=== PATIENT | female | born 1960 | race African-American/Black ===

== ENCOUNTER 2022-12-15 11:59 | Inpatient (IN) | payer OTHER ==
[2022-12-15] MEDS ORDERED: HEPARIN NA (PORCINE) 5,000 UNITS/ML 1ML VIAL IVPUSH PRN ×2 (18:10)
[2022-12-15] MEDS: HEPARIN - 25,000 UNIT in SODIUM CHLORIDE 495 ML IV SCH (19:51)
[2022-12-15 21:00] LABS: BASO % 1.3 % (0-2.0); EOS % 0.9 % (0-4.5); HEMATOCRIT 34.5 % (32.4-45.2); HEMOGLOBIN 11.3 GM/dL (10.7-15.3); LYMPH % 25.1 % (8-40); MCH 29.5 pg (25.7-33.7); MCHC 32.8 g/dl (32.0-36.0); MEAN CELL VOLUME 89.8 fl (80-96); MEAN PLT VOLUME 9.8 fl (7.5-11.1); MONO % 11.7 % (3.8-10.2); PLATELET COUNT 369 10^3/uL (134-434); RBC 3.85 M/mm3 (3.60-5.2); RDW 14.6 % (11.6-15.6)
[2022-12-15 21:07] LABS: INR 1.11 (0.83-1.09); PROTHROMBIN TIME (PATIENT) 12.9 SEC (9.7-13.0)
[2022-12-15 21:09] LABS: ACTIVATED PTT 49.3 SECONDS (25.2-36.5)
[2022-12-15 21:26] LABS: CALCIUM 9.3 mg/dL (8.5-10.1)
[2022-12-15 21:27] LABS: ALBUMIN 2.7 g/dl (3.4-5.0); BLOOD UREA NITROGEN 16.6 mg/dL (7-18)
[2022-12-15 21:30] LABS: CREATININE 0.8 mg/dL (0.55-1.3)
[2022-12-15 21:31] LABS: BILIRUBIN,TOTAL 0.4 mg/dL (0.2-1)
[2022-12-15] MEDS ORDERED: INSULIN (NOVOLOG) ASPART 100 UNITS/ML 10ML VIAL ONE (22:21)
[2022-12-15] MEDS: INSULIN SLIDING SCALE (NOVOLOG) 1 VIAL SQ SCH (22:26)
[2022-12-15 23:37] LABS: ANISOCYTOSIS 0; HELMET CELLS 0; HOWELL-JOLLY BODIES 0; MACROCYTOSIS 0; OVALOCYTE 0; PLATELET ESTIMATE NORMAL; ROULEAU 0; SICKELED CELLS 0; TARGET CELLS 0; TEAR DROP CELLS 0; TOXIC GRANULATION 0
[2022-12-16] MEDS ORDERED: HYDROCORTISONE SOD SUCCINATE 100 MG/2 ML VIAL IVPUSH ONE (06:00)
[2022-12-16] MEDS: INSULIN SLIDING SCALE (NOVOLOG) 1 VIAL SQ SCH ×4 (06:09→22:55)
[2022-12-16] MEDS ORDERED: LISINOPRIL 5 MG TABLET PO SCH (10:00)
[2022-12-16] MEDS ORDERED: ATORVASTATIN CA 20 MG TABLET (FP) PO SCH (10:00)
[2022-12-16] MEDS: HEPARIN - 25,000 UNIT in SODIUM CHLORIDE 495 ML IV SCH ×2 (12:45→19:15)
[2022-12-16] MEDS ORDERED: DEXTROSE 5%-NORMAL SALINE 1,000 ML IV SCH (14:15)
[2022-12-16] MEDS ORDERED: HEPARIN NA (PORCINE) 5,000 UNITS/ML 1ML VIAL ONE ×3 (15:27→18:57)
[2022-12-16] MEDS ORDERED: LIDOCAINE HCL 1%, 10 MG/ML (10ML VIAL) MDV ONE (15:27)
[2022-12-16] MEDS ORDERED: PROPOFOL 40 ML ONE ×2 (15:54→18:01)
[2022-12-16] MEDS ORDERED: MIDAZOLAM HCL 2 MG/2 ML SINGLE DOSE VIAL ONE (16:05)
[2022-12-16] MEDS ORDERED: PROPOFOL 20 ML ONE ×2 (16:06→18:26)
[2022-12-16] MEDS ORDERED: SODIUM CHLORIDE 1,000 ML IV SCH ×2 (16:15→19:31)
[2022-12-16] MEDS ORDERED: ceFAZolin SODIUM 1 GM VIAL IVPB ONE (16:20)
[2022-12-16] MEDS ORDERED: LIDOCAINE HCL 1%, 10 MG/ML (20ML VIAL) NR ONE (16:28)
[2022-12-16] MEDS ORDERED: ONDANSETRON 4 MG/2 ML VIAL ONE (17:42)
[2022-12-16] MEDS ORDERED: HYDROCORTISONE SOD SUCCINATE 100 MG/2 ML VIAL IVPUSH SCH (18:15)
[2022-12-16] MEDS ORDERED: ONDANSETRON 4 MG/2 ML VIAL IVPUSH PRN ×2 (18:48→19:31)
[2022-12-16] MEDS: HEPARIN NA (PORCINE) 5,000 UNITS/ML 1ML VIAL IVPUSH PRN (19:00)
[2022-12-16] MEDS ORDERED: HEPARIN NA (PORCINE) 5,000 UNITS/ML 1ML VIAL IVPUSH PRN ×2 (19:00→19:01)
[2022-12-16] MEDS ORDERED: LACTATED RINGERS SOLUTION 1,000 ML IV SCH ×2 (19:00→19:31)
[2022-12-16] MEDS ORDERED: morphine SULFATE 4 MG/ML VIAL IVPUSH PRN (19:04)
[2022-12-16] MEDS ORDERED: ACETAMINOPHEN 1000 MG/100 ML BAG IVPB PRN (21:34)
[2022-12-16] MEDS ORDERED: INSULIN (LEVEMIR) 100 UNITS/ML UNITS SQ SCH (22:00)
[2022-12-16] MEDS ORDERED: ATORVASTATIN CA 80 MG TABLET (FP) PO SCH (22:00)
[2022-12-16] MEDS ORDERED: BUDESONIDE/FORMETEROL FUMARATE 80/4.5 mcg INHALER IH SCH (22:00)
[2022-12-16] MEDS: MUPIROCIN 2% TOPICAL OINTMENT FOR DECOLONIZATION NS SCH (22:54)
[2022-12-16] MEDS: CHLORHEXIDINE GLUCONATE 4% CLEANSER FOR DECOLONIZATION TP SCH (22:54)
[2022-12-16] MEDS: INSULIN (LEVEMIR) 100 UNITS/ML UNITS SQ SCH (22:54)
[2022-12-16] MEDS: ATORVASTATIN CA 80 MG TABLET (FP) PO SCH (22:54)
[2022-12-16] MEDS: BUDESONIDE/FORMETEROL FUMARATE 80/4.5 mcg INHALER IH SCH (22:55)
[2022-12-17] MEDS: HYDROCORTISONE SOD SUCCINATE 100 MG/2 ML VIAL IVPUSH SCH ×2 (01:30→09:26)
[2022-12-17] MEDS: GABAPENTIN 100 MG CAPSULE PO SCH ×4 (02:30→21:08)
[2022-12-17] MEDS: HYDROmorphone *PCA* 10MG/50ML DISP.SYRIN PCA SCH (03:15)
[2022-12-17] MEDS ORDERED: INSULIN (NOVOLOG) ASPART 100 UNITS/ML 10ML VIAL ONE ×3 (05:49→17:24)
[2022-12-17] MEDS: INSULIN SLIDING SCALE (NOVOLOG) 1 VIAL SQ SCH ×4 (06:13→21:24)
[2022-12-17 07:56] LABS: HEMATOCRIT 34.3 % (32.4-45.2); HEMOGLOBIN 10.7 GM/dL (10.7-15.3); MCH 29.1 pg (25.7-33.7); MCHC 31.3 g/dl (32.0-36.0); MEAN CELL VOLUME 93.1 fl (80-96); MEAN PLT VOLUME 10.7 fl (7.5-11.1); PLATELET COUNT 358 10^3/uL (134-434); RBC 3.68 M/mm3 (3.60-5.2); RDW 14.4 % (11.6-15.6); WHITE BLOOD COUNT 12.9 K/mm3 (4.0-10.0)
[2022-12-17 08:07] LABS: POTASSIUM 3.7 mmol/L (3.5-5.1)
[2022-12-17 08:17] LABS: CREATININE 1.2 mg/dL (0.55-1.3)
[2022-12-17 08:19] LABS: ALBUMIN 2.6 g/dl (3.4-5.0); BILIRUBIN,TOTAL 0.7 mg/dL (0.2-1); BLOOD UREA NITROGEN 10.7 mg/dL (7-18); CALCIUM 8.9 mg/dL (8.5-10.1); MAGNESIUM 1.6 mg/dL (1.8-2.4); TOT PROT 5.6 g/dl (6.4-8.2)
[2022-12-17 08:21] LABS: PHOSPHOROUS 5.5 mg/dL (2.5-4.9)
[2022-12-17] MEDS: LISINOPRIL 5 MG TABLET PO SCH (09:06)
[2022-12-17] MEDS: BUDESONIDE/FORMETEROL FUMARATE 80/4.5 mcg INHALER IH SCH ×2 (09:11→21:10)
[2022-12-17] MEDS: MUPIROCIN 2% TOPICAL OINTMENT FOR DECOLONIZATION NS SCH ×2 (10:16→21:09)
[2022-12-17] MEDS ORDERED: MAGNESIUM SULF 50% (8.12 MEQ/2 ML-1 GM VIAL) IVPB ONE (11:07)
[2022-12-17] MEDS: ACETAMINOPHEN 1000 MG/100 ML BAG IVPB SCH ×2 (11:55→18:07)
[2022-12-17] MEDS ORDERED: ONDANSETRON 4 MG/2 ML VIAL IVPUSH ONE (13:06)
[2022-12-17] MEDS ORDERED: ONDANSETRON 4 MG/2 ML VIAL IVPUSH PRN (13:07)
[2022-12-17 15:06] VITALS: BMI 33.5
[2022-12-17 15:45] LABS: INR 1.42 (0.83-1.09)
[2022-12-17 16:33] LABS: ACTIVATED PTT > 400.0 SECONDS (25.2-36.5)
[2022-12-17 16:56] LABS: INR 1.09 (0.83-1.09); PROTHROMBIN TIME (PATIENT) 12.6 SEC (9.7-13.0)
[2022-12-17] MEDS: HEPARIN NA (PORCINE) 5,000 UNITS/ML 1ML VIAL IVPUSH PRN (17:03)
[2022-12-17] MEDS: HEPARIN - 25,000 UNIT in SODIUM CHLORIDE 495 ML IV SCH (19:15)
[2022-12-17] MEDS: INSULIN (LEVEMIR) 100 UNITS/ML UNITS SQ SCH (21:08)
[2022-12-17] MEDS: CHLORHEXIDINE GLUCONATE 4% CLEANSER FOR DECOLONIZATION TP SCH (21:08)
[2022-12-17] MEDS: ATORVASTATIN CA 80 MG TABLET (FP) PO SCH (21:08)
[2022-12-18] MEDS: HYDROmorphone *PCA* 10MG/50ML DISP.SYRIN PCA SCH (03:20)
[2022-12-18] MEDS: ACETAMINOPHEN 1000 MG/100 ML BAG IVPB SCH ×3 (03:20→17:59)
[2022-12-18] MEDS: GABAPENTIN 100 MG CAPSULE PO SCH ×3 (05:13→21:14)
[2022-12-18] MEDS: INSULIN SLIDING SCALE (NOVOLOG) 1 VIAL SQ SCH ×4 (06:20→21:14)
[2022-12-18 07:13] LABS: HEMATOCRIT 30.4 % (32.4-45.2); HEMOGLOBIN 9.6 GM/dL (10.7-15.3); MCH 29.5 pg (25.7-33.7); MCHC 31.8 g/dl (32.0-36.0); MEAN CELL VOLUME 92.9 fl (80-96); MEAN PLT VOLUME 10.3 fl (7.5-11.1); PLATELET COUNT 336 10^3/uL (134-434); RBC 3.27 M/mm3 (3.60-5.2); RDW 14.5 % (11.6-15.6)
[2022-12-18 07:16] LABS: POTASSIUM 3.4 mmol/L (3.5-5.1)
[2022-12-18 07:19] LABS: CALCIUM 8.3 mg/dL (8.5-10.1)
[2022-12-18 07:21] LABS: ALBUMIN 2.4 g/dl (3.4-5.0); BLOOD UREA NITROGEN 13.4 mg/dL (7-18); MAGNESIUM 2.2 mg/dL (1.8-2.4)
[2022-12-18 07:23] LABS: CREATININE 0.8 mg/dL (0.55-1.3); PHOSPHOROUS 3.4 mg/dL (2.5-4.9)
[2022-12-18 07:24] LABS: BILIRUBIN,TOTAL 0.3 mg/dL (0.2-1); TOT PROT 5.2 g/dl (6.4-8.2)
[2022-12-18] MEDS ORDERED: ALBUTEROL SO4 HFA INHALER IH PRN (07:38)
[2022-12-18] MEDS ORDERED: POTASSIUM CHLORIDE TABS 20 MEQ TABLET.ER (FP) PO ONE (08:11)
[2022-12-18 09:37] LABS: ANISOCYTOSIS 0; MACROCYTOSIS 0
[2022-12-18] MEDS ORDERED: INSULIN (NOVOLOG) ASPART 100 UNITS/ML 10ML VIAL ONE ×2 (10:03→20:55)
[2022-12-18] MEDS: LISINOPRIL 5 MG TABLET PO SCH (10:29)
[2022-12-18] MEDS: MUPIROCIN 2% TOPICAL OINTMENT FOR DECOLONIZATION NS SCH ×2 (10:30→21:15)
[2022-12-18] MEDS: BUDESONIDE/FORMETEROL FUMARATE 80/4.5 mcg INHALER IH SCH ×2 (10:30→22:28)
[2022-12-18] MEDS: INSULIN (LEVEMIR) 100 UNITS/ML UNITS SQ SCH ×2 (10:30→21:14)
[2022-12-18] MEDS ORDERED: ERGOCALCIFEROL (VIT D2) 50,000 UNIT (1.25 MG) CAPSULE PO SCH (11:15)
[2022-12-18] MEDS: CLOPIDOGREL BISULFATE 75 MG TABLET (FP) PO SCH (11:18)
[2022-12-18] MEDS: RIVAROXABAN 20 MG TABLET PO SCH ×2 (11:18→17:57)
[2022-12-18] MEDS: ATORVASTATIN CA 80 MG TABLET (FP) PO SCH (21:14)
[2022-12-18] MEDS: CHLORHEXIDINE GLUCONATE 4% CLEANSER FOR DECOLONIZATION TP SCH (21:15)
[2022-12-19] MEDS: ACETAMINOPHEN 1000 MG/100 ML BAG IVPB SCH ×3 (03:00→20:14)
[2022-12-19] MEDS: GABAPENTIN 100 MG CAPSULE PO SCH ×3 (06:27→21:01)
[2022-12-19] MEDS: INSULIN SLIDING SCALE (NOVOLOG) 1 VIAL SQ SCH ×4 (06:28→21:02)
[2022-12-19] MEDS: INSULIN (NOVOLOG) ASPART 100 UNITS/ML 10ML VIAL SQ SCH ×3 (06:29→16:17)
[2022-12-19] MEDS ORDERED: morphine CARPU-JECT 2 MG/1 ML DISP.SYRIN IVPUSH ONE (06:50)
[2022-12-19 07:00] LABS: HEMATOCRIT 33.8 % (32.4-45.2); HEMOGLOBIN 10.8 GM/dL (10.7-15.3); MCH 29.6 pg (25.7-33.7); MCHC 32.1 g/dl (32.0-36.0); MEAN CELL VOLUME 92.2 fl (80-96); MEAN PLT VOLUME 9.5 fl (7.5-11.1); PLATELET COUNT 362 10^3/uL (134-434); RBC 3.66 M/mm3 (3.60-5.2); RDW 14.6 % (11.6-15.6); WHITE BLOOD COUNT 11.4 K/mm3 (4.0-10.0)
[2022-12-19] MEDS ORDERED: INSULIN (LEVEMIR) 100 UNITS/ML UNITS SQ SCH (07:00)
[2022-12-19] MEDS: CLOPIDOGREL BISULFATE 75 MG TABLET (FP) PO SCH (09:01)
[2022-12-19] MEDS: LISINOPRIL 5 MG TABLET PO SCH (09:01)
[2022-12-19] MEDS: BUDESONIDE/FORMETEROL FUMARATE 80/4.5 mcg INHALER IH SCH ×2 (09:02→21:02)
[2022-12-19] MEDS: MUPIROCIN 2% TOPICAL OINTMENT FOR DECOLONIZATION NS SCH ×2 (09:02→21:00)
[2022-12-19] MEDS ORDERED: ALBUTEROL SO4 HFA INHALER IH PRN (10:53)
[2022-12-19] MEDS ORDERED: ONDANSETRON 4 MG/2 ML VIAL IVPUSH PRN (10:53)
[2022-12-19] MEDS ORDERED: INSULIN (NOVOLOG) ASPART 100 UNITS/ML 10ML VIAL ONE ×3 (11:07→20:51)
[2022-12-19] MEDS: RIVAROXABAN 20 MG TABLET PO SCH (17:08)
[2022-12-19] MEDS ORDERED: LISINOPRIL 5 MG TABLET PO ONE (17:53)
[2022-12-19] MEDS: ATORVASTATIN CA 80 MG TABLET (FP) PO SCH (21:00)
[2022-12-19] MEDS: CHLORHEXIDINE GLUCONATE 4% CLEANSER FOR DECOLONIZATION TP SCH (21:01)
[2022-12-19] MEDS: INSULIN (LEVEMIR) 100 UNITS/ML UNITS SQ SCH (21:01)
[2022-12-20] MEDS ORDERED: HYDROmorphone HCl 2 MG/ML VIAL IVPUSH ONE (00:45)
[2022-12-20] MEDS: ACETAMINOPHEN 1000 MG/100 ML BAG IVPB SCH ×3 (03:30→18:54)
[2022-12-20] MEDS: GABAPENTIN 100 MG CAPSULE PO SCH (06:04)
[2022-12-20] MEDS: INSULIN (LEVEMIR) 100 UNITS/ML UNITS SQ SCH ×2 (06:04→22:25)
[2022-12-20] MEDS: INSULIN SLIDING SCALE (NOVOLOG) 1 VIAL SQ SCH ×5 (06:05→22:26)
[2022-12-20] MEDS: INSULIN (NOVOLOG) ASPART 100 UNITS/ML 10ML VIAL SQ SCH ×3 (06:05→16:17)
[2022-12-20 07:45] LABS: BASO % 0.5 % (0-2.0); EOS % 4.9 % (0-4.5); HEMOGLOBIN 9.9 GM/dL (10.7-15.3); LYMPH % 30.8 % (8-40); MCHC 32.1 g/dl (32.0-36.0); MEAN CELL VOLUME 93.5 fl (80-96); MEAN PLT VOLUME 9.2 fl (7.5-11.1); MONO % 10.7 % (3.8-10.2); NEUT % 53.1 % (42.8-82.8); PLATELET COUNT 338 10^3/uL (134-434); RBC 3.31 M/mm3 (3.60-5.2); RDW 14.5 % (11.6-15.6); WHITE BLOOD COUNT 10.5 K/mm3 (4.0-10.0)
[2022-12-20 08:23] LABS: POTASSIUM 3.8 mmol/L (3.5-5.1)
[2022-12-20] MEDS ORDERED: KETOROLAC TROMETHAMINE 15 MG/ML VIAL IVPUSH ONE (08:30)
[2022-12-20 08:31] LABS: CALCIUM 8.9 mg/dL (8.5-10.1)
[2022-12-20 08:32] LABS: ALBUMIN 2.3 g/dl (3.4-5.0); BLOOD UREA NITROGEN 8.6 mg/dL (7-18)
[2022-12-20 08:33] LABS: BILIRUBIN,TOTAL 0.3 mg/dL (0.2-1)
[2022-12-20 08:34] LABS: TOT PROT 5.7 g/dl (6.4-8.2)
[2022-12-20] MEDS ORDERED: DOCUSATE SODIUM 100 MG CAPSULE (FP) PO PRN (08:56)
[2022-12-20] MEDS: LISINOPRIL 10 MG TABLET PO SCH (09:04)
[2022-12-20] MEDS: CLOPIDOGREL BISULFATE 75 MG TABLET (FP) PO SCH (09:04)
[2022-12-20] MEDS: BUDESONIDE/FORMETEROL FUMARATE 80/4.5 mcg INHALER IH SCH ×2 (09:05→22:03)
[2022-12-20] MEDS: MUPIROCIN 2% TOPICAL OINTMENT FOR DECOLONIZATION NS SCH ×3 (09:05→22:03)
[2022-12-20] MEDS ORDERED: HYDROmorphone HCL 2 MG TABLET PO ONE (09:30)
[2022-12-20] MEDS ORDERED: ACETAMINOPHEN 1000 MG/100 ML BAG IVPB ONE (09:47)
[2022-12-20] MEDS ORDERED: LISINOPRIL 5 MG TABLET PO SCH (10:00)
[2022-12-20] MEDS ORDERED: INSULIN (NOVOLOG) ASPART 100 UNITS/ML 10ML VIAL ONE ×2 (11:04→22:25)
[2022-12-20] MEDS: oxyCODONE HCL 10 MG SUSTAINED ACTING TABLET PO SCH ×2 (11:39→22:03)
[2022-12-20] MEDS: GABAPENTIN 300 MG CAPSULE PO SCH ×2 (13:23→22:03)
[2022-12-20] MEDS: RIVAROXABAN 20 MG TABLET PO SCH (17:04)
[2022-12-20] MEDS: CHLORHEXIDINE GLUCONATE 4% CLEANSER FOR DECOLONIZATION TP SCH (22:03)
[2022-12-20] MEDS: ATORVASTATIN CA 80 MG TABLET (FP) PO SCH (22:03)
[2022-12-21] MEDS ORDERED: HYDROmorphone HCl 2 MG/ML VIAL IVPUSH ONE ×2 (00:14→21:00)
[2022-12-21] MEDS: ACETAMINOPHEN 1000 MG/100 ML BAG IVPB SCH ×3 (02:24→18:14)
[2022-12-21] MEDS: GABAPENTIN 300 MG CAPSULE PO SCH ×3 (05:29→21:29)
[2022-12-21] MEDS: INSULIN (LEVEMIR) 100 UNITS/ML UNITS SQ SCH ×2 (06:18→21:47)
[2022-12-21] MEDS: INSULIN SLIDING SCALE (NOVOLOG) 1 VIAL SQ SCH ×4 (06:20→21:46)
[2022-12-21] MEDS: INSULIN (NOVOLOG) ASPART 100 UNITS/ML 10ML VIAL SQ SCH ×3 (06:20→16:47)
[2022-12-21 06:53] LABS: HEMATOCRIT 32.2 % (32.4-45.2); MCH 29.3 pg (25.7-33.7); MCHC 31.2 g/dl (32.0-36.0); MEAN CELL VOLUME 93.8 fl (80-96); MEAN PLT VOLUME 8.9 fl (7.5-11.1); PLATELET COUNT 372 10^3/uL (134-434); RBC 3.43 M/mm3 (3.60-5.2); RDW 14.7 % (11.6-15.6); WHITE BLOOD COUNT 11.3 K/mm3 (4.0-10.0)
[2022-12-21] MEDS ORDERED: INSULIN (LEVEMIR) 100 UNITS/ML UNITS SQ ONE (07:24)
[2022-12-21] MEDS: MUPIROCIN 2% TOPICAL OINTMENT FOR DECOLONIZATION NS SCH (09:13)
[2022-12-21] MEDS: CLOPIDOGREL BISULFATE 75 MG TABLET (FP) PO SCH (09:14)
[2022-12-21] MEDS: oxyCODONE HCL 10 MG SUSTAINED ACTING TABLET PO SCH ×2 (09:14→21:34)
[2022-12-21] MEDS: LISINOPRIL 10 MG TABLET PO SCH (09:14)
[2022-12-21] MEDS: BUDESONIDE/FORMETEROL FUMARATE 80/4.5 mcg INHALER IH SCH ×2 (09:14→21:33)
[2022-12-21] MEDS: RIVAROXABAN 20 MG TABLET PO SCH (18:14)
[2022-12-21] MEDS: ATORVASTATIN CA 80 MG TABLET (FP) PO SCH (21:29)
[2022-12-21] MEDS: CHLORHEXIDINE GLUCONATE 4% CLEANSER FOR DECOLONIZATION TP SCH (21:29)
[2022-12-22] MEDS: ACETAMINOPHEN 1000 MG/100 ML BAG IVPB SCH ×3 (02:43→18:44)
[2022-12-22] MEDS ORDERED: HYDROmorphone HCl 2 MG/ML VIAL IVPUSH ONE ×2 (03:11→20:59)
[2022-12-22] MEDS: INSULIN (LEVEMIR) 100 UNITS/ML UNITS SQ SCH ×2 (06:46→23:09)
[2022-12-22] MEDS: INSULIN (NOVOLOG) ASPART 100 UNITS/ML 10ML VIAL SQ SCH ×3 (06:46→17:50)
[2022-12-22] MEDS: GABAPENTIN 300 MG CAPSULE PO SCH ×3 (06:47→23:09)
[2022-12-22] MEDS: INSULIN SLIDING SCALE (NOVOLOG) 1 VIAL SQ SCH ×4 (06:47→23:09)
[2022-12-22 07:20] LABS: HEMATOCRIT 29.2 % (32.4-45.2); HEMOGLOBIN 9.3 GM/dL (10.7-15.3); MCH 29.6 pg (25.7-33.7); MCHC 31.8 g/dl (32.0-36.0); MEAN PLT VOLUME 9.3 fl (7.5-11.1); PLATELET COUNT 387 10^3/uL (134-434); RBC 3.14 M/mm3 (3.60-5.2); RDW 14.2 % (11.6-15.6); WHITE BLOOD COUNT 11.1 K/mm3 (4.0-10.0)
[2022-12-22] MEDS: oxyCODONE HCL 10 MG SUSTAINED ACTING TABLET PO SCH ×2 (09:49→23:11)
[2022-12-22] MEDS: BUDESONIDE/FORMETEROL FUMARATE 80/4.5 mcg INHALER IH SCH ×2 (09:50→23:11)
[2022-12-22] MEDS: CLOPIDOGREL BISULFATE 75 MG TABLET (FP) PO SCH (09:50)
[2022-12-22] MEDS: LISINOPRIL 10 MG TABLET PO SCH (09:50)
[2022-12-22] MEDS ORDERED: LACTULOSE 20 GM/30 ML UDC (FOR ORAL USE ONLY) PO ONE (12:00)
[2022-12-22] MEDS: RIVAROXABAN 20 MG TABLET PO SCH (17:50)
[2022-12-22] MEDS: CHLORHEXIDINE GLUCONATE 4% CLEANSER FOR DECOLONIZATION TP SCH (23:08)
[2022-12-22] MEDS: ATORVASTATIN CA 80 MG TABLET (FP) PO SCH (23:09)
[2022-12-22] MEDS: SENNOSIDES 8.8 MG/5 ML SYRUP PO SCH (23:11)
[2022-12-23] MEDS: ACETAMINOPHEN 1000 MG/100 ML BAG IVPB SCH ×3 (03:17→18:05)
[2022-12-23] MEDS: GABAPENTIN 300 MG CAPSULE PO SCH ×2 (06:55→13:48)
[2022-12-23] MEDS: INSULIN (LEVEMIR) 100 UNITS/ML UNITS SQ SCH ×2 (06:55→21:29)
[2022-12-23] MEDS: INSULIN SLIDING SCALE (NOVOLOG) 1 VIAL SQ SCH ×4 (06:57→21:30)
[2022-12-23] MEDS: INSULIN (NOVOLOG) ASPART 100 UNITS/ML 10ML VIAL SQ SCH ×3 (06:57→17:38)
[2022-12-23] MEDS: LISINOPRIL 10 MG TABLET PO SCH (09:04)
[2022-12-23] MEDS: BUDESONIDE/FORMETEROL FUMARATE 80/4.5 mcg INHALER IH SCH ×2 (09:05→21:31)
[2022-12-23] MEDS: oxyCODONE HCL 10 MG SUSTAINED ACTING TABLET PO SCH (09:05)
[2022-12-23] MEDS: CLOPIDOGREL BISULFATE 75 MG TABLET (FP) PO SCH (09:05)
[2022-12-23] MEDS ORDERED: HYDROmorphone HCL 2 MG TABLET PO PRN ×2 (13:42→15:59)
[2022-12-23] MEDS: RIVAROXABAN 20 MG TABLET PO SCH (17:38)
[2022-12-23] MEDS ORDERED: INSULIN (NOVOLOG) ASPART 100 UNITS/ML 10ML VIAL ONE (21:24)
[2022-12-23] MEDS: CHLORHEXIDINE GLUCONATE 4% CLEANSER FOR DECOLONIZATION TP SCH (21:29)
[2022-12-23] MEDS: SENNOSIDES 8.8 MG/5 ML SYRUP PO SCH (21:30)
[2022-12-23] MEDS: GABAPENTIN 400 MG CAPSULE PO SCH (21:30)
[2022-12-23] MEDS: ATORVASTATIN CA 80 MG TABLET (FP) PO SCH (21:30)
[2022-12-24] MEDS: ACETAMINOPHEN 1000 MG/100 ML BAG IVPB SCH ×2 (02:29→11:56)
[2022-12-24] MEDS: GABAPENTIN 400 MG CAPSULE PO SCH ×3 (06:17→22:31)
[2022-12-24] MEDS ORDERED: LIDOCAINE HCL 1%, 10 MG/ML (10ML VIAL) MDV ONE (07:10)
[2022-12-24] MEDS ORDERED: HEPARIN NA (PORCINE) 5,000 UNITS/ML 1ML VIAL ONE (07:10)
[2022-12-24] MEDS: INSULIN SLIDING SCALE (NOVOLOG) 1 VIAL SQ SCH ×4 (07:31→22:32)
[2022-12-24] MEDS: INSULIN (LEVEMIR) 100 UNITS/ML UNITS SQ SCH ×2 (07:31→22:31)
[2022-12-24] MEDS: INSULIN (NOVOLOG) ASPART 100 UNITS/ML 10ML VIAL SQ SCH ×3 (07:31→17:33)
[2022-12-24 07:46] LABS: HEMATOCRIT 30.1 % (32.4-45.2); HEMOGLOBIN 9.7 GM/dL (10.7-15.3); MCH 29.6 pg (25.7-33.7); MCHC 32.2 g/dl (32.0-36.0); MEAN CELL VOLUME 91.9 fl (80-96); MEAN PLT VOLUME 8.5 fl (7.5-11.1); PLATELET COUNT 454 10^3/uL (134-434); RBC 3.28 M/mm3 (3.60-5.2); WHITE BLOOD COUNT 9.9 K/mm3 (4.0-10.0)
[2022-12-24 07:47] LABS: INR 1.62 (0.83-1.09); PROTHROMBIN TIME (PATIENT) 18.7 SEC (9.7-13.0)
[2022-12-24] MEDS ORDERED: PROPOFOL 20 ML ONE ×4 (08:10→09:27)
[2022-12-24] MEDS ORDERED: SUCCINYLCHOLINE CHLORIDE 200 MG/10 ML SYRINGE ONE (08:10)
[2022-12-24] MEDS ORDERED: MIDAZOLAM HCL 2 MG/2 ML SINGLE DOSE VIAL ONE (08:14)
[2022-12-24] MEDS ORDERED: ceFAZolin SODIUM 1 GM VIAL IVPB ONE (08:15)
[2022-12-24] MEDS ORDERED: ONDANSETRON 4 MG/2 ML VIAL ONE (08:15)
[2022-12-24] MEDS ORDERED: LIDOCAINE HCL 1%, 10 MG/ML (20ML VIAL) NR ONE (08:27)
[2022-12-24] MEDS ORDERED: ALTEPLASE (CATHFLO) 2 MG/2 ML VIAL IA ONE ×2 (08:30→10:32)
[2022-12-24] MEDS ORDERED: ALTEPLASE (CATHFLO) 2 MG/2 ML VIAL CVP ONE ×2 (08:39)
[2022-12-24 08:40] LABS: CALCIUM 9.8 mg/dL (8.5-10.1)
[2022-12-24 08:45] LABS: BLOOD UREA NITROGEN 6.5 mg/dL (7-18); MAGNESIUM 2.1 mg/dL (1.8-2.4)
[2022-12-24 08:47] LABS: CREATININE 0.7 mg/dL (0.55-1.3); PHOSPHOROUS 5.4 mg/dL (2.5-4.9)
[2022-12-24] MEDS ORDERED: HEPARIN NA (PORCINE) 5,000 UNITS/ML 1ML VIAL IVPUSH PRN ×2 (10:12)
[2022-12-24] MEDS ORDERED: ONDANSETRON 4 MG/2 ML VIAL IVPUSH PRN ×2 (10:16→10:32)
[2022-12-24] MEDS: HEPARIN INFUSION - 25,000 UNITS/500 ML INFUS.BAG IVPB SCH (10:19)
[2022-12-24] MEDS ORDERED: LACTATED RINGERS SOLUTION 1,000 ML IV SCH (10:30)
[2022-12-24] MEDS ORDERED: ALBUTEROL SO4 HFA INHALER IH PRN (10:32)
[2022-12-24] MEDS ORDERED: HYDROmorphone HCL 2 MG TABLET PO PRN (10:32)
[2022-12-24] MEDS ORDERED: ACETAMINOPHEN INJECTION 100 ML IVPB ONE (11:00)
[2022-12-24] MEDS ORDERED: ACETAMINOPHEN 1000 MG/100 ML BAG IVPB ONE (11:05)
[2022-12-24] MEDS ORDERED: HYDROmorphone HCL 2 MG TABLET PO ONE (11:45)
[2022-12-24] MEDS ORDERED: HYDROmorphone *PCA* 10MG/50ML DISP.SYRIN PCA ONE (11:55)
[2022-12-24] MEDS: HYDROmorphone *PCA* 10MG/50ML DISP.SYRIN PCA SCH (12:01)
[2022-12-24] MEDS: CLOPIDOGREL BISULFATE 75 MG TABLET (FP) PO SCH (13:18)
[2022-12-24] MEDS: LISINOPRIL 10 MG TABLET PO SCH (13:18)
[2022-12-24] MEDS: BUDESONIDE/FORMETEROL FUMARATE 80/4.5 mcg INHALER IH SCH ×2 (13:18→22:32)
[2022-12-24] MEDS ORDERED: SODIUM CHLORIDE 1,000 ML IV STA (15:58)
[2022-12-24] MEDS ORDERED: SODIUM CHLORIDE 1,000 ML IV SCH (16:00)
[2022-12-24] MEDS ORDERED: ACETAMINOPHEN 325 MG TABLET (FP) PO PRN (16:05)
[2022-12-24] MEDS ORDERED: PIPERACILLIN/TAZOB 3.375 GM 3.375 GM in DEXTROSE 5%-WATER - 50 ML IVPB SCH (16:45)
[2022-12-24 17:27] LABS: URINE APPEARANCE CLEAR; URINE BILIRUBIN NEGATIVE (NEGATIVE); URINE COLOR YELLOW; URINE GLUCOSE (UA) NEGATIVE (NEGATIVE); URINE KETONE NEGATIVE (NEGATIVE); URINE LEUK ESTERASE NEGATIVE (NEGATIVE); URINE NITRITE NEGATIVE (NEGATIVE); URINE PROTEIN NEGATIVE (NEGATIVE); URINE UROBILINOGEN 0.2 mg/dL (0.2-1.0)
[2022-12-24] MEDS: PIPERACILLIN/TAZOB 3.375 GM 3.375 GM in DEXTROSE 5%-WATER - 50 ML IVPB SCH ×2 (17:27→21:55)
[2022-12-24] MEDS: VANCOMYCIN/WATER 1250 MG 1,250 MG/250 ML BAG IVPB SCH (17:27)
[2022-12-24 19:04] LABS: BASO % 0.2 % (0-2.0); EOS % 4.4 % (0-4.5); HEMATOCRIT 29.6 % (32.4-45.2); HEMOGLOBIN 9.6 GM/dL (10.7-15.3); MCH 29.6 pg (25.7-33.7); MCHC 32.5 g/dl (32.0-36.0); MEAN CELL VOLUME 91.1 fl (80-96); MEAN PLT VOLUME 7.9 fl (7.5-11.1); MONO % 8.2 % (3.8-10.2); NEUT % 82.2 % (42.8-82.8); PLATELET COUNT 381 10^3/uL (134-434); RBC 3.25 M/mm3 (3.60-5.2); RDW 14.3 % (11.6-15.6); WHITE BLOOD COUNT 10.7 K/mm3 (4.0-10.0)
[2022-12-24 19:20] LABS: POTASSIUM 4.2 mmol/L (3.5-5.1)
[2022-12-24 19:23] LABS: ALBUMIN 2.3 g/dl (3.4-5.0); BLOOD UREA NITROGEN 5.9 mg/dL (7-18); CALCIUM 8.7 mg/dL (8.5-10.1); MAGNESIUM 1.6 mg/dL (1.8-2.4)
[2022-12-24 19:26] LABS: PHOSPHOROUS 6.2 mg/dL (2.5-4.9)
[2022-12-24 19:27] LABS: CREATININE 0.8 mg/dL (0.55-1.3)
[2022-12-24 19:28] LABS: BILIRUBIN,TOTAL 0.2 mg/dL (0.2-1)
[2022-12-24] MEDS ORDERED: VANCOMYCIN/WATER 1250 MG 1,250 MG/250 ML BAG IVPB SCH (22:00)
[2022-12-24] MEDS: CHLORHEXIDINE GLUCONATE 4% CLEANSER FOR DECOLONIZATION TP SCH (22:30)
[2022-12-24] MEDS: ATORVASTATIN CA 80 MG TABLET (FP) PO SCH (22:31)
[2022-12-24] MEDS: SENNOSIDES 8.8 MG/5 ML SYRUP PO SCH (22:32)
[2022-12-25] MEDS: PIPERACILLIN/TAZOB 3.375 GM 3.375 GM in DEXTROSE 5%-WATER - 50 ML IVPB SCH ×3 (02:45→17:52)
[2022-12-25] MEDS: ACETAMINOPHEN 1000 MG/100 ML BAG IVPB SCH ×4 (02:46→19:43)
[2022-12-25] MEDS: VANCOMYCIN/WATER 1250 MG 1,250 MG/250 ML BAG IVPB SCH ×2 (05:03→19:46)
[2022-12-25 08:19] LABS: HEMATOCRIT 28.2 % (32.4-45.2); MCH 29.5 pg (25.7-33.7); MCHC 31.8 g/dl (32.0-36.0); MEAN CELL VOLUME 92.9 fl (80-96); MEAN PLT VOLUME 8.5 fl (7.5-11.1); PLATELET COUNT 376 10^3/uL (134-434); RBC 3.04 M/mm3 (3.60-5.2); RDW 14.3 % (11.6-15.6); WHITE BLOOD COUNT 11.4 K/mm3 (4.0-10.0)
[2022-12-25 08:24] LABS: INR 1.35 (0.83-1.09); PROTHROMBIN TIME (PATIENT) 15.6 SEC (9.7-13.0)
[2022-12-25 08:27] LABS: ACTIVATED PTT 50.4 SECONDS (25.2-36.5)
[2022-12-25 08:51] LABS: POTASSIUM 3.7 mmol/L (3.5-5.1)
[2022-12-25 08:56] LABS: CALCIUM 8.7 mg/dL (8.5-10.1)
[2022-12-25 08:57] LABS: BLOOD UREA NITROGEN 6.4 mg/dL (7-18)
[2022-12-25 08:58] LABS: MAGNESIUM 1.8 mg/dL (1.8-2.4)
[2022-12-25 08:59] LABS: BILIRUBIN,TOTAL 0.3 mg/dL (0.2-1); CREATININE 0.9 mg/dL (0.55-1.3); TOT PROT 5.6 g/dl (6.4-8.2)
[2022-12-25] MEDS: GABAPENTIN 400 MG CAPSULE PO SCH ×3 (09:21→22:41)
[2022-12-25] MEDS: INSULIN (LEVEMIR) 100 UNITS/ML UNITS SQ SCH ×2 (09:22→22:41)
[2022-12-25] MEDS: INSULIN (NOVOLOG) ASPART 100 UNITS/ML 10ML VIAL SQ SCH ×3 (09:22→17:06)
[2022-12-25] MEDS: INSULIN SLIDING SCALE (NOVOLOG) 1 VIAL SQ SCH ×4 (09:23→22:42)
[2022-12-25] MEDS: CLOPIDOGREL BISULFATE 75 MG TABLET (FP) PO SCH (09:27)
[2022-12-25] MEDS: LISINOPRIL 10 MG TABLET PO SCH (09:27)
[2022-12-25] MEDS ORDERED: ERGOCALCIFEROL (VIT D2) 50,000 UNIT (1.25 MG) CAPSULE PO SCH ×2 (10:00)
[2022-12-25] MEDS: BUDESONIDE/FORMETEROL FUMARATE 80/4.5 mcg INHALER IH SCH ×2 (10:44→22:41)
[2022-12-25] MEDS ORDERED: oxyCODONE HCL 5 MG TABLET PO PRN (12:02)
[2022-12-25] MEDS: CYCLOBENZAPRINE HCL 10 MG TABLET (FP) PO PRN (14:32)
[2022-12-25] MEDS: ENOXAPARIN NA (PORCINE) 100 MG/1 ML DISP.SYRIN SQ SCH ×2 (14:33→22:41)
[2022-12-25] MEDS: HYDROmorphone *PCA* 10MG/50ML DISP.SYRIN PCA SCH (19:44)
[2022-12-25] MEDS: HEPARIN INFUSION - 25,000 UNITS/500 ML INFUS.BAG IVPB SCH (19:46)
[2022-12-25] MEDS: SENNOSIDES 8.8 MG/5 ML SYRUP PO SCH (22:37)
[2022-12-25] MEDS: ATORVASTATIN CA 80 MG TABLET (FP) PO SCH (22:41)
[2022-12-25] MEDS: CHLORHEXIDINE GLUCONATE 4% CLEANSER FOR DECOLONIZATION TP SCH (22:41)
[2022-12-26] MEDS: oxyCODONE HCL 5 MG TABLET PO PRN ×2 (00:10→22:35)
[2022-12-26] MEDS: HYDROmorphone *PCA* 10MG/50ML DISP.SYRIN PCA SCH ×2 (00:52→11:55)
[2022-12-26] MEDS: PIPERACILLIN/TAZOB 3.375 GM 3.375 GM in DEXTROSE 5%-WATER - 50 ML IVPB SCH ×3 (01:41→17:33)
[2022-12-26] MEDS: ACETAMINOPHEN 1000 MG/100 ML BAG IVPB SCH ×3 (03:52→18:15)
[2022-12-26] MEDS: INSULIN (LEVEMIR) 100 UNITS/ML UNITS SQ SCH ×2 (06:55→22:24)
[2022-12-26] MEDS: GABAPENTIN 400 MG CAPSULE PO SCH ×3 (06:55→22:25)
[2022-12-26] MEDS: INSULIN SLIDING SCALE (NOVOLOG) 1 VIAL SQ SCH ×4 (06:56→22:26)
[2022-12-26] MEDS: INSULIN (NOVOLOG) ASPART 100 UNITS/ML 10ML VIAL SQ SCH ×3 (06:56→16:31)
[2022-12-26] MEDS ORDERED: INSULIN (NOVOLOG) ASPART 100 UNITS/ML 10ML VIAL ONE (07:03)
[2022-12-26 07:15] LABS: BASO % 1.1 % (0-2.0); EOS % 5.9 % (0-4.5); HEMATOCRIT 26.5 % (32.4-45.2); HEMOGLOBIN 8.4 GM/dL (10.7-15.3); LYMPH % 23.6 % (8-40); MCH 29.3 pg (25.7-33.7); MCHC 31.7 g/dl (32.0-36.0); MEAN CELL VOLUME 92.3 fl (80-96); MEAN PLT VOLUME 8.1 fl (7.5-11.1); MONO % 10.9 % (3.8-10.2); NEUT % 58.5 % (42.8-82.8); PLATELET COUNT 365 10^3/uL (134-434); RBC 2.87 M/mm3 (3.60-5.2); RDW 14.1 % (11.6-15.6); WHITE BLOOD COUNT 12.5 K/mm3 (4.0-10.0)
[2022-12-26 07:24] LABS: POTASSIUM 3.9 mmol/L (3.5-5.1)
[2022-12-26 07:33] LABS: ALBUMIN 1.9 g/dl (3.4-5.0); BLOOD UREA NITROGEN 7.3 mg/dL (7-18); CALCIUM 8.9 mg/dL (8.5-10.1)
[2022-12-26 07:34] LABS: TOT PROT 5.6 g/dl (6.4-8.2)
[2022-12-26 07:36] LABS: CREATININE 0.8 mg/dL (0.55-1.3); PHOSPHOROUS 4.6 mg/dL (2.5-4.9)
[2022-12-26 07:38] LABS: BILIRUBIN,TOTAL 0.3 mg/dL (0.2-1)
[2022-12-26] MEDS: CLOPIDOGREL BISULFATE 75 MG TABLET (FP) PO SCH (09:51)
[2022-12-26] MEDS: LISINOPRIL 10 MG TABLET PO SCH (09:51)
[2022-12-26] MEDS: BUDESONIDE/FORMETEROL FUMARATE 80/4.5 mcg INHALER IH SCH ×2 (09:51→22:26)
[2022-12-26] MEDS: CYCLOBENZAPRINE HCL 10 MG TABLET (FP) PO PRN (09:51)
[2022-12-26] MEDS: ENOXAPARIN NA (PORCINE) 100 MG/1 ML DISP.SYRIN SQ SCH ×2 (09:51→22:25)
[2022-12-26] MEDS: ATORVASTATIN CA 80 MG TABLET (FP) PO SCH (22:25)
[2022-12-26] MEDS: CHLORHEXIDINE GLUCONATE 4% CLEANSER FOR DECOLONIZATION TP SCH (22:26)
[2022-12-26] MEDS: SENNOSIDES 8.8 MG/5 ML SYRUP PO SCH (22:31)
[2022-12-27] MEDS: PIPERACILLIN/TAZOB 3.375 GM 3.375 GM in DEXTROSE 5%-WATER - 50 ML IVPB SCH ×3 (01:02→17:21)
[2022-12-27] MEDS: ACETAMINOPHEN 1000 MG/100 ML BAG IVPB SCH ×3 (02:30→18:20)
[2022-12-27] MEDS: INSULIN SLIDING SCALE (NOVOLOG) 1 VIAL SQ SCH ×4 (06:50→21:13)
[2022-12-27] MEDS: GABAPENTIN 400 MG CAPSULE PO SCH ×3 (06:50→21:01)
[2022-12-27] MEDS: INSULIN (NOVOLOG) ASPART 100 UNITS/ML 10ML VIAL SQ SCH ×3 (06:50→16:06)
[2022-12-27] MEDS: INSULIN (LEVEMIR) 100 UNITS/ML UNITS SQ SCH ×2 (06:50→21:13)
[2022-12-27] MEDS: oxyCODONE HCL 5 MG TABLET PO PRN ×2 (07:38→20:29)
[2022-12-27 07:59] LABS: HEMATOCRIT 27.8 % (32.4-45.2); HEMOGLOBIN 8.7 GM/dL (10.7-15.3); MCH 28.7 pg (25.7-33.7); MCHC 31.3 g/dl (32.0-36.0); MEAN CELL VOLUME 91.8 fl (80-96); MEAN PLT VOLUME 8.2 fl (7.5-11.1); PLATELET COUNT 422 10^3/uL (134-434); RBC 3.03 M/mm3 (3.60-5.2); RDW 13.9 % (11.6-15.6); WHITE BLOOD COUNT 13.6 K/mm3 (4.0-10.0)
[2022-12-27] MEDS: ENOXAPARIN NA (PORCINE) 100 MG/1 ML DISP.SYRIN SQ SCH ×2 (09:16→21:01)
[2022-12-27] MEDS: CYCLOBENZAPRINE HCL 10 MG TABLET (FP) PO PRN (09:16)
[2022-12-27] MEDS: LISINOPRIL 10 MG TABLET PO SCH (09:16)
[2022-12-27] MEDS: CLOPIDOGREL BISULFATE 75 MG TABLET (FP) PO SCH (09:16)
[2022-12-27] MEDS: BUDESONIDE/FORMETEROL FUMARATE 80/4.5 mcg INHALER IH SCH ×2 (09:17→21:01)
[2022-12-27] MEDS: HYDROmorphone *PCA* 10MG/50ML DISP.SYRIN PCA SCH (13:34)
[2022-12-27] MEDS ORDERED: CYCLOBENZAPRINE HCL 5 MG TABLET PO PRN (15:33)
[2022-12-27] MEDS: ATORVASTATIN CA 80 MG TABLET (FP) PO SCH (21:01)
[2022-12-27] MEDS: SENNOSIDES 8.8 MG/5 ML SYRUP PO SCH (21:01)
[2022-12-27] MEDS: CHLORHEXIDINE GLUCONATE 4% CLEANSER FOR DECOLONIZATION TP SCH (21:01)
[2022-12-28] MEDS: PIPERACILLIN/TAZOB 3.375 GM 3.375 GM in DEXTROSE 5%-WATER - 50 ML IVPB SCH ×3 (01:15→17:22)
[2022-12-28] MEDS: ACETAMINOPHEN 1000 MG/100 ML BAG IVPB SCH ×3 (02:03→18:23)
[2022-12-28] MEDS: GABAPENTIN 400 MG CAPSULE PO SCH ×3 (05:54→21:27)
[2022-12-28] MEDS: INSULIN (LEVEMIR) 100 UNITS/ML UNITS SQ SCH ×2 (06:45→21:25)
[2022-12-28] MEDS: INSULIN (NOVOLOG) ASPART 100 UNITS/ML 10ML VIAL SQ SCH ×3 (06:45→17:21)
[2022-12-28] MEDS: INSULIN SLIDING SCALE (NOVOLOG) 1 VIAL SQ SCH ×4 (06:46→21:25)
[2022-12-28 07:11] LABS: BASO % 0.5 % (0-2.0); EOS % 6.1 % (0-4.5); HEMATOCRIT 29.7 % (32.4-45.2); HEMOGLOBIN 9.3 GM/dL (10.7-15.3); LYMPH % 26.9 % (8-40); MCH 28.8 pg (25.7-33.7); MCHC 31.3 g/dl (32.0-36.0); MEAN CELL VOLUME 92.1 fl (80-96); MEAN PLT VOLUME 7.7 fl (7.5-11.1); MONO % 15.1 % (3.8-10.2); NEUT % 51.4 % (42.8-82.8); PLATELET COUNT 458 10^3/uL (134-434); RBC 3.23 M/mm3 (3.60-5.2); WHITE BLOOD COUNT 11.7 K/mm3 (4.0-10.0)
[2022-12-28 07:27] LABS: POTASSIUM 4.2 mmol/L (3.5-5.1)
[2022-12-28 07:33] LABS: ALBUMIN 2.2 g/dl (3.4-5.0); BLOOD UREA NITROGEN 5.4 mg/dL (7-18); CALCIUM 9.2 mg/dL (8.5-10.1); MAGNESIUM 1.9 mg/dL (1.8-2.4)
[2022-12-28 07:36] LABS: CREATININE 0.8 mg/dL (0.55-1.3)
[2022-12-28 07:38] LABS: BILIRUBIN,TOTAL 0.3 mg/dL (0.2-1); TOT PROT 6.4 g/dl (6.4-8.2)
[2022-12-28] MEDS: ENOXAPARIN NA (PORCINE) 100 MG/1 ML DISP.SYRIN SQ SCH ×2 (09:31→21:28)
[2022-12-28] MEDS: BUDESONIDE/FORMETEROL FUMARATE 80/4.5 mcg INHALER IH SCH ×2 (09:32→21:27)
[2022-12-28] MEDS: CLOPIDOGREL BISULFATE 75 MG TABLET (FP) PO SCH (09:32)
[2022-12-28] MEDS: LISINOPRIL 10 MG TABLET PO SCH (09:32)
[2022-12-28] MEDS: oxyCODONE HCL 5 MG TABLET PO PRN ×2 (13:03→21:29)
[2022-12-28] MEDS: HYDROmorphone *PCA* 10MG/50ML DISP.SYRIN PCA SCH ×2 (15:03→23:27)
[2022-12-28] MEDS ORDERED: ALBUTEROL SO4 2.5/IPRATROPIUM 0.5 INH SOL 3 ML VIAL.NEB. NEB PRN (18:14)
[2022-12-28] MEDS: SENNOSIDES 8.8 MG/5 ML SYRUP PO SCH (21:25)
[2022-12-28] MEDS: ATORVASTATIN CA 80 MG TABLET (FP) PO SCH (21:27)
[2022-12-28] MEDS: CHLORHEXIDINE GLUCONATE 4% CLEANSER FOR DECOLONIZATION TP SCH (21:28)
[2022-12-29] MEDS: PIPERACILLIN/TAZOB 3.375 GM 3.375 GM in DEXTROSE 5%-WATER - 50 ML IVPB SCH ×2 (02:00→09:49)
[2022-12-29] MEDS: ACETAMINOPHEN 1000 MG/100 ML BAG IVPB SCH ×4 (03:06→18:01)
[2022-12-29] MEDS: GABAPENTIN 400 MG CAPSULE PO SCH ×3 (06:02→21:24)
[2022-12-29] MEDS: INSULIN SLIDING SCALE (NOVOLOG) 1 VIAL SQ SCH ×4 (06:02→21:23)
[2022-12-29] MEDS: INSULIN (NOVOLOG) ASPART 100 UNITS/ML 10ML VIAL SQ SCH ×3 (06:02→17:46)
[2022-12-29] MEDS: INSULIN (LEVEMIR) 100 UNITS/ML UNITS SQ SCH ×2 (06:02→21:22)
[2022-12-29] MEDS: oxyCODONE HCL 5 MG TABLET PO PRN ×2 (06:02→21:26)
[2022-12-29] MEDS: CLOPIDOGREL BISULFATE 75 MG TABLET (FP) PO SCH (09:50)
[2022-12-29] MEDS: LISINOPRIL 10 MG TABLET PO SCH (09:50)
[2022-12-29] MEDS: ENOXAPARIN NA (PORCINE) 100 MG/1 ML DISP.SYRIN SQ SCH ×2 (09:50→21:24)
[2022-12-29] MEDS: BUDESONIDE/FORMETEROL FUMARATE 80/4.5 mcg INHALER IH SCH ×2 (09:51→21:25)
[2022-12-29 11:13] LABS: BASO % 0.8 % (0-2.0); HEMATOCRIT 28.8 % (32.4-45.2); HEMOGLOBIN 9.2 GM/dL (10.7-15.3); LYMPH % 26.9 % (8-40); MCH 29.3 pg (25.7-33.7); MEAN CELL VOLUME 91.6 fl (80-96); MEAN PLT VOLUME 7.5 fl (7.5-11.1); MONO % 14.6 % (3.8-10.2); NEUT % 50.7 % (42.8-82.8); PLATELET COUNT 482 10^3/uL (134-434); RBC 3.15 M/mm3 (3.60-5.2); RDW 14.2 % (11.6-15.6); WHITE BLOOD COUNT 10.8 K/mm3 (4.0-10.0)
[2022-12-29 11:38] LABS: CHLORIDE 99 mmol/L (98-107); POTASSIUM 3.9 mmol/L (3.5-5.1); SODIUM 139 mmol/L (136-145)
[2022-12-29 11:40] LABS: ALBUMIN 2.1 g/dl (3.4-5.0); ANION GAP 4 MMOL/L (8-16); BLOOD UREA NITROGEN 5.7 mg/dL (7-18); CALCIUM 9.1 mg/dL (8.5-10.1); CO2 37 mmol/L (21-32); GLUCOSE,RANDOM 169 mg/dL (74-106)
[2022-12-29 11:41] LABS: MAGNESIUM 1.8 mg/dL (1.8-2.4)
[2022-12-29 11:43] LABS: PHOSPHOROUS 4.8 mg/dL (2.5-4.9); SGOT/AST 16 U/L (15-37); SGPT/ALT 13 U/L (13-61)
[2022-12-29 11:44] LABS: CREATININE 0.7 mg/dL (0.55-1.3)
[2022-12-29 11:45] LABS: BILIRUBIN,TOTAL < 0.1 mg/dL (0.2-1); TOT PROT 6.1 g/dl (6.4-8.2)
[2022-12-29 11:46] LABS: ALK PHOS 70 U/L (45-117)
[2022-12-29] MEDS: HYDROmorphone *PCA* 10MG/50ML DISP.SYRIN PCA SCH (12:04)
[2022-12-29] MEDS ORDERED: ONDANSETRON 4 MG/2 ML VIAL IVPUSH PRN (13:54)
[2022-12-29] MEDS ORDERED: ALBUTEROL SO4 HFA INHALER IH PRN (13:54)
[2022-12-29] MEDS ORDERED: ACETAMINOPHEN 325 MG TABLET (FP) PO PRN (13:54)
[2022-12-29] MEDS ORDERED: ALBUTEROL SO4 2.5/IPRATROPIUM 0.5 INH SOL 3 ML VIAL.NEB. NEB PRN (13:54)
[2022-12-29] MEDS ORDERED: CYCLOBENZAPRINE HCL 5 MG TABLET PO PRN (13:54)
[2022-12-29] MEDS: AMOX TR/POT CLAV 875MG/125MG TABLETS (FP) PO SCH (17:50)
[2022-12-29] MEDS ORDERED: INSULIN (NOVOLOG) ASPART 100 UNITS/ML 10ML VIAL ONE ×2 (17:52→21:07)
[2022-12-29] MEDS: CHLORHEXIDINE GLUCONATE 4% CLEANSER FOR DECOLONIZATION TP SCH (21:23)
[2022-12-29] MEDS: ATORVASTATIN CA 80 MG TABLET (FP) PO SCH (21:23)
[2022-12-29] MEDS: SENNOSIDES 8.8 MG/5 ML BULK BOTTLE PO SCH (21:25)
[2022-12-30] MEDS: ACETAMINOPHEN 1000 MG/100 ML BAG IVPB SCH ×3 (02:47→18:05)
[2022-12-30] MEDS: INSULIN SLIDING SCALE (NOVOLOG) 1 VIAL SQ SCH ×4 (06:03→21:02)
[2022-12-30] MEDS: GABAPENTIN 400 MG CAPSULE PO SCH ×3 (06:07→21:02)
[2022-12-30] MEDS: INSULIN (LEVEMIR) 100 UNITS/ML UNITS SQ SCH ×2 (06:14→21:03)
[2022-12-30] MEDS: INSULIN (NOVOLOG) ASPART 100 UNITS/ML 10ML VIAL SQ SCH ×3 (06:15→17:47)
[2022-12-30] MEDS ORDERED: INSULIN (LEVEMIR) 100 UNITS/ML UNITS SQ ONE (06:32)
[2022-12-30 07:13] LABS: HEMATOCRIT 28.7 % (32.4-45.2); HEMOGLOBIN 9.2 GM/dL (10.7-15.3); MCH 29.1 pg (25.7-33.7); MCHC 32.1 g/dl (32.0-36.0); MEAN CELL VOLUME 90.9 fl (80-96); MEAN PLT VOLUME 7.7 fl (7.5-11.1); PLATELET COUNT 512 10^3/uL (134-434); RBC 3.15 M/mm3 (3.60-5.2); RDW 14.2 % (11.6-15.6); WHITE BLOOD COUNT 12.4 K/mm3 (4.0-10.0)
[2022-12-30 07:50] LABS: CALCIUM 9.7 mg/dL (8.5-10.1)
[2022-12-30 07:51] LABS: BLOOD UREA NITROGEN 5.2 mg/dL (7-18); MAGNESIUM 1.9 mg/dL (1.8-2.4)
[2022-12-30 07:54] LABS: CREATININE 0.7 mg/dL (0.55-1.3); PHOSPHOROUS 5.3 mg/dL (2.5-4.9)
[2022-12-30] MEDS: oxyCODONE HCL 5 MG TABLET PO PRN ×3 (07:54→21:02)
[2022-12-30] MEDS: AMOX TR/POT CLAV 875MG/125MG TABLETS (FP) PO SCH ×2 (09:07→16:30)
[2022-12-30] MEDS: ENOXAPARIN NA (PORCINE) 100 MG/1 ML DISP.SYRIN SQ SCH (09:07)
[2022-12-30] MEDS: CLOPIDOGREL BISULFATE 75 MG TABLET (FP) PO SCH (09:07)
[2022-12-30] MEDS: LISINOPRIL 10 MG TABLET PO SCH (09:07)
[2022-12-30] MEDS: BUDESONIDE/FORMETEROL FUMARATE 80/4.5 mcg INHALER IH SCH ×2 (09:08→21:05)
[2022-12-30] MEDS: APIXABAN 5 MG TABLET PO SCH ×2 (14:24→21:01)
[2022-12-30] MEDS: FUROSEMIDE 40 MG/4 ML INJECTABLE VIAL IVPUSH SCH (16:29)
[2022-12-30] MEDS: ATORVASTATIN CA 80 MG TABLET (FP) PO SCH (21:01)
[2022-12-30] MEDS: SENNOSIDES 8.8 MG/5 ML BULK BOTTLE PO SCH (21:02)
[2022-12-30] MEDS: CHLORHEXIDINE GLUCONATE 4% CLEANSER FOR DECOLONIZATION TP SCH (21:03)
[2022-12-31] MEDS: ACETAMINOPHEN 1000 MG/100 ML BAG IVPB SCH ×3 (02:21→19:52)
[2022-12-31] MEDS: GABAPENTIN 400 MG CAPSULE PO SCH ×3 (05:51→21:15)
[2022-12-31] MEDS: oxyCODONE HCL 5 MG TABLET PO PRN ×3 (05:51→17:48)
[2022-12-31] MEDS: INSULIN (LEVEMIR) 100 UNITS/ML UNITS SQ SCH ×2 (06:28→21:15)
[2022-12-31] MEDS: INSULIN SLIDING SCALE (NOVOLOG) 1 VIAL SQ SCH ×4 (06:28→21:15)
[2022-12-31] MEDS: INSULIN (NOVOLOG) ASPART 100 UNITS/ML 10ML VIAL SQ SCH ×3 (06:29→17:47)
[2022-12-31] MEDS: FUROSEMIDE 40 MG/4 ML INJECTABLE VIAL IVPUSH SCH (09:37)
[2022-12-31] MEDS: LISINOPRIL 10 MG TABLET PO SCH (09:37)
[2022-12-31] MEDS: AMOX TR/POT CLAV 875MG/125MG TABLETS (FP) PO SCH ×2 (09:37→17:48)
[2022-12-31] MEDS: APIXABAN 5 MG TABLET PO SCH ×2 (09:37→21:15)
[2022-12-31] MEDS: CLOPIDOGREL BISULFATE 75 MG TABLET (FP) PO SCH (09:37)
[2022-12-31] MEDS: BUDESONIDE/FORMETEROL FUMARATE 80/4.5 mcg INHALER IH SCH ×2 (09:46→21:16)
[2022-12-31] MEDS: ATORVASTATIN CA 80 MG TABLET (FP) PO SCH (21:15)
[2022-12-31] MEDS: CHLORHEXIDINE GLUCONATE 4% CLEANSER FOR DECOLONIZATION TP SCH (21:15)
[2022-12-31] MEDS: SENNOSIDES 8.8 MG/5 ML BULK BOTTLE PO SCH (21:16)
[2023-01-01] MEDS: oxyCODONE HCL 5 MG TABLET PO PRN ×3 (00:19→20:39)
[2023-01-01] MEDS: ACETAMINOPHEN 1000 MG/100 ML BAG IVPB SCH ×3 (02:05→20:39)
[2023-01-01] MEDS: INSULIN (LEVEMIR) 100 UNITS/ML UNITS SQ SCH ×2 (06:02→21:03)
[2023-01-01] MEDS: GABAPENTIN 400 MG CAPSULE PO SCH ×3 (06:02→21:00)
[2023-01-01] MEDS: INSULIN (NOVOLOG) ASPART 100 UNITS/ML 10ML VIAL SQ SCH ×3 (06:02→17:16)
[2023-01-01] MEDS: INSULIN SLIDING SCALE (NOVOLOG) 1 VIAL SQ SCH ×4 (06:03→21:03)
[2023-01-01 07:26] LABS: HEMATOCRIT 30.5 % (32.4-45.2); HEMOGLOBIN 9.7 GM/dL (10.7-15.3); MCH 28.9 pg (25.7-33.7); MCHC 31.7 g/dl (32.0-36.0); MEAN CELL VOLUME 91.1 fl (80-96); MEAN PLT VOLUME 7.8 fl (7.5-11.1); PLATELET COUNT 604 10^3/uL (134-434); RBC 3.35 M/mm3 (3.60-5.2); RDW 14.2 % (11.6-15.6); WHITE BLOOD COUNT 11.6 K/mm3 (4.0-10.0)
[2023-01-01] MEDS: CLOPIDOGREL BISULFATE 75 MG TABLET (FP) PO SCH (09:15)
[2023-01-01] MEDS: LISINOPRIL 10 MG TABLET PO SCH (09:15)
[2023-01-01] MEDS: FUROSEMIDE 40 MG TABLET (FP) PO SCH ×2 (09:15→14:32)
[2023-01-01] MEDS: APIXABAN 5 MG TABLET PO SCH ×2 (09:16→21:00)
[2023-01-01] MEDS: AMOX TR/POT CLAV 875MG/125MG TABLETS (FP) PO SCH (09:17)
[2023-01-01] MEDS: BUDESONIDE/FORMETEROL FUMARATE 80/4.5 mcg INHALER IH SCH ×2 (09:22→21:00)
[2023-01-01] MEDS ORDERED: ERGOCALCIFEROL (VIT D2) 50,000 UNIT (1.25 MG) CAPSULE PO SCH (10:00)
[2023-01-01] MEDS ORDERED: INSULIN (NOVOLOG) ASPART 100 UNITS/ML 10ML VIAL ONE (12:09)
[2023-01-01] MEDS: CHLORHEXIDINE GLUCONATE 4% CLEANSER FOR DECOLONIZATION TP SCH (21:00)
[2023-01-01] MEDS: ATORVASTATIN CA 80 MG TABLET (FP) PO SCH (21:00)
[2023-01-01] MEDS: SENNOSIDES 8.8 MG/5 ML BULK BOTTLE PO SCH (22:36)
[2023-01-02] MEDS: ACETAMINOPHEN 1000 MG/100 ML BAG IVPB SCH ×3 (02:17→18:02)
[2023-01-02] MEDS: oxyCODONE HCL 5 MG TABLET PO PRN ×3 (03:33→19:24)
[2023-01-02] MEDS: FUROSEMIDE 40 MG TABLET (FP) PO SCH ×2 (06:07→14:52)
[2023-01-02] MEDS: GABAPENTIN 400 MG CAPSULE PO SCH ×3 (06:07→21:24)
[2023-01-02] MEDS: INSULIN (NOVOLOG) ASPART 100 UNITS/ML 10ML VIAL SQ SCH ×3 (06:16→16:57)
[2023-01-02] MEDS: INSULIN (LEVEMIR) 100 UNITS/ML UNITS SQ SCH ×2 (06:16→21:23)
[2023-01-02] MEDS: INSULIN SLIDING SCALE (NOVOLOG) 1 VIAL SQ SCH ×4 (06:16→21:25)
[2023-01-02] MEDS: LISINOPRIL 10 MG TABLET PO SCH (09:44)
[2023-01-02] MEDS: APIXABAN 5 MG TABLET PO SCH ×2 (09:44→21:25)
[2023-01-02] MEDS: CLOPIDOGREL BISULFATE 75 MG TABLET (FP) PO SCH (09:44)
[2023-01-02] MEDS: LIDOCAINE 5% TOPICAL PATCH TP SCH (11:38)
[2023-01-02] MEDS: BUDESONIDE/FORMETEROL FUMARATE 80/4.5 mcg INHALER IH SCH ×2 (11:43→21:26)
[2023-01-02] MEDS ORDERED: INSULIN (NOVOLOG) ASPART 100 UNITS/ML 10ML VIAL ONE ×2 (21:16→21:30)
[2023-01-02] MEDS: ATORVASTATIN CA 80 MG TABLET (FP) PO SCH (21:25)
[2023-01-02] MEDS: CHLORHEXIDINE GLUCONATE 4% CLEANSER FOR DECOLONIZATION TP SCH (21:25)
[2023-01-02] MEDS: SENNOSIDES 8.8 MG/5 ML BULK BOTTLE PO SCH (21:26)
[2023-01-02] MEDS ORDERED: LIDOCAINE PATCH REMOVAL MC SCH (22:00)
[2023-01-03] MEDS: oxyCODONE HCL 5 MG TABLET PO PRN ×2 (01:39→09:30)
[2023-01-03] MEDS: ACETAMINOPHEN 1000 MG/100 ML BAG IVPB SCH ×2 (02:00→11:57)
[2023-01-03] MEDS: FUROSEMIDE 40 MG TABLET (FP) PO SCH (05:19)
[2023-01-03] MEDS: GABAPENTIN 400 MG CAPSULE PO SCH (05:19)
[2023-01-03] MEDS: INSULIN SLIDING SCALE (NOVOLOG) 1 VIAL SQ SCH ×2 (06:05→11:56)
[2023-01-03] MEDS: INSULIN (LEVEMIR) 100 UNITS/ML UNITS SQ SCH (06:05)
[2023-01-03] MEDS: INSULIN (NOVOLOG) ASPART 100 UNITS/ML 10ML VIAL SQ SCH ×2 (06:05→12:10)
[2023-01-03] MEDS: LISINOPRIL 10 MG TABLET PO SCH (09:27)
[2023-01-03] MEDS: CLOPIDOGREL BISULFATE 75 MG TABLET (FP) PO SCH (09:28)
[2023-01-03] MEDS: APIXABAN 5 MG TABLET PO SCH (09:28)
[2023-01-03] MEDS: LIDOCAINE 5% TOPICAL PATCH TP SCH (09:28)
[2023-01-03] MEDS: BUDESONIDE/FORMETEROL FUMARATE 80/4.5 mcg INHALER IH SCH (09:29)
[2023-01-03] MEDS ORDERED: INSULIN (NOVOLOG) ASPART 100 UNITS/ML 10ML VIAL ONE (12:11)
[2023-01-03 13:50] VITALS: TEMP 98.9
[2023-01-03 13:51] VITALS: BP 100/60; PULSE 96; RESP 21
== END 2023-01-03 12:30 | DRG 271 ==
LOC: J6S 17:34 → JICU 12-16 21:06 → J2W 12-18 15:20 → JICU 12-24 12:19 → J2W 12-29 16:48
PROVIDERS: ADMIT Surgery Vascular Surgery; ATTEND Internal Medicine
PROC: 047K3DZ Dilation of Right Femoral Artery with Intraluminal Device, Percutaneous Approach (ICD-10-PCS; 2022-12-16)
PROC: 047K3D1 Dilation of Right Femoral Artery with Intraluminal Device, using Drug-Coated Balloon, Percutaneous Approach (ICD-10-PCS; 2022-12-16)
PROC: 047P3ZZ Dilation of Right Anterior Tibial Artery, Percutaneous Approach (ICD-10-PCS; 2022-12-16)
PROC: B41DZZZ Fluoroscopy of Aorta and Bilateral Lower Extremity Arteries (ICD-10-PCS; 2022-12-16)
PROC: B40FYZZ Plain Radiography of Right Lower Extremity Arteries using Other Contrast (ICD-10-PCS; 2022-12-16)
PROC: 04CK3ZZ Extirpation of Matter from Right Femoral Artery, Percutaneous Approach (ICD-10-PCS; principal; 2022-12-16 16:00)
PROC: 04CP3ZZ Extirpation of Matter from Right Anterior Tibial Artery, Percutaneous Approach (ICD-10-PCS; 2022-12-24)
PROC: 047P3DZ Dilation of Right Anterior Tibial Artery with Intraluminal Device, Percutaneous Approach (ICD-10-PCS; 2022-12-24)
PROC: 047R3ZZ Dilation of Right Posterior Tibial Artery, Percutaneous Approach (ICD-10-PCS; 2022-12-24)
PROC: 3E05317 Introduction of Other Thrombolytic into Peripheral Artery, Percutaneous Approach (ICD-10-PCS; 2022-12-24)
PROC: B41DZZZ Fluoroscopy of Aorta and Bilateral Lower Extremity Arteries (ICD-10-PCS; 2022-12-24)
PROC: B40FYZZ Plain Radiography of Right Lower Extremity Arteries using Other Contrast (ICD-10-PCS; 2022-12-24)
DX: E11.51 Type 2 diabetes mellitus with diabetic peripheral angiopathy without gangrene (principal); N39.0 Urinary tract infection, site not specified; E78.5 Hyperlipidemia, unspecified; I48.0 Paroxysmal atrial fibrillation; Z79.01 Long term (current) use of anticoagulants; J44.9 Chronic obstructive pulmonary disease, unspecified; E11.65 Type 2 diabetes mellitus with hyperglycemia; I12.9 Hypertensive chronic kidney disease with stage 1 through stage 4 chronic kidney disease, or unspecified chronic kidney disease; R09.02 Hypoxemia; E11.22 Type 2 diabetes mellitus with diabetic chronic kidney disease; N18.9 Chronic kidney disease, unspecified; Z91.148 Patient's other noncompliance with medication regimen for other reason; E11.40 Type 2 diabetes mellitus with diabetic neuropathy, unspecified; K59.00 Constipation, unspecified; R19.7 Diarrhea, unspecified
CPT/HCPCS: 36415; 71045-TC-FY; 76000-TC-FY; 80048; 80053; 81003; 82962; 83036; 83605; 83735; 83880; 84100; 85025; 85027; 85610; 85730; 86850; 86900; 86901; 87040; 87070; 87086; 87186; 87205; 87324; 87449; 87493; 87635; 93005; 93010; 93306-TC; 94760; 97116-GP; 97162-GP; C1724; C1725; C1760; C1769; C1876; C1887; C2623; J1644; J2997

== ENCOUNTER 2023-01-11 12:53 | Inpatient (IN) | payer OTHER ==
[2023-01-11] MEDS ORDERED: ACETAMINOPHEN 1000 MG/100 ML BAG IVPB ONE (14:26)
[2023-01-11] MEDS ORDERED: ACETAMINOPHEN INJECTION 100 ML IVPB ONE (14:39)
[2023-01-11 15:07] LABS: BASO % 0.9 % (0-2.0); EOS % 6.6 % (0-4.5); HEMATOCRIT 34.8 % (32.4-45.2); HEMOGLOBIN 11.1 GM/dL (10.7-15.3); LYMPH % 36.5 % (8-40); MCH 28.2 pg (25.7-33.7); MEAN CELL VOLUME 88.3 fl (80-96); MEAN PLT VOLUME 7.1 fl (7.5-11.1); PLATELET COUNT 875 10^3/uL (134-434); RBC 3.94 M/mm3 (3.60-5.2); RDW 14.6 % (11.6-15.6); WHITE BLOOD COUNT 13.1 K/mm3 (4.0-10.0)
[2023-01-11 15:12] LABS: INR 1.89 (0.83-1.09); PROTHROMBIN TIME (PATIENT) 21.8 SEC (9.7-13.0)
[2023-01-11 15:15] LABS: ACTIVATED PTT 44.7 SECONDS (25.2-36.5)
[2023-01-11 15:25] LABS: CALCIUM 10.2 mg/dL (8.5-10.1)
[2023-01-11 15:26] LABS: BLOOD UREA NITROGEN 17.2 mg/dL (7-18)
[2023-01-11 15:29] LABS: CREATININE 1.6 mg/dL (0.55-1.3)
[2023-01-11 15:31] LABS: BILIRUBIN,TOTAL 0.4 mg/dL (0.2-1); TOT PROT 7.9 g/dl (6.4-8.2)
[2023-01-11] MEDS ORDERED: SODIUM CHLORIDE 0.9% 500 ML INFUS.BAG IV ONE (15:34)
[2023-01-11] MEDS ORDERED: PIPERACILLIN/TAZOBACTAM 4.5 GM VIAL IVPB ONE (15:35)
[2023-01-11] MEDS ORDERED: VANCOMYCIN 1,000 MG in DEXTROSE 5%-WATER - 250 ML IVPB ONE (15:35)
[2023-01-11] MEDS ORDERED: PIPERACILLIN/TAZOB 4.5 GM 4.5 GM/100 ML BAG IVPB ONE (15:39)
[2023-01-11] MEDS ORDERED: ONDANSETRON 4 MG/2 ML VIAL IVPUSH ONE (15:49)
[2023-01-11] MEDS ORDERED: ONDANSETRON 4 MG/2 ML VIAL ONE (15:50)
[2023-01-11] MEDS ORDERED: VANCOMYCIN/WATER FOR INJ (PEG) 1,000 MG/200 ML BAG IVPB ONE (16:28)
[2023-01-11] MEDS ORDERED: SENNOSIDES 8.6MG TABLET (FP) PO PRN (17:31)
[2023-01-11] MEDS ORDERED: SODIUM CHLORIDE 1,000 ML IV STA (17:32)
[2023-01-11] MEDS ORDERED: CYCLOBENZAPRINE HCL 5 MG TABLET PO PRN (17:34)
[2023-01-11] MEDS ORDERED: ALBUTEROL SO4 HFA INHALER IH PRN (17:34)
[2023-01-11] MEDS: oxyCODONE HCL 5 MG TABLET PO PRN (21:53)
[2023-01-11] MEDS: MONTELUKAST NA 10 MG TABLET PO SCH (21:54)
[2023-01-11] MEDS: ATORVASTATIN CA 80 MG TABLET (FP) PO SCH (21:55)
[2023-01-11] MEDS: INSULIN (LEVEMIR) 100 UNITS/ML UNITS SQ SCH (21:55)
[2023-01-11] MEDS: GABAPENTIN 400 MG CAPSULE PO SCH (21:55)
[2023-01-11] MEDS: ENOXAPARIN NA (PORCINE) 80 MG/0.8 ML DISP.SYRIN SQ SCH (21:55)
[2023-01-11] MEDS: BUDESONIDE/FORMETEROL FUMARATE 80/4.5 mcg INHALER IH SCH (23:08)
[2023-01-12] MEDS: ACETAMINOPHEN 325 MG TABLET (FP) PO PRN ×3 (01:34→14:22)
[2023-01-12 06:18] VITALS: BMI 33.3
[2023-01-12] MEDS: INSULIN SLIDING SCALE (NOVOLOG) 1 VIAL SQ SCH ×3 (06:59→16:21)
[2023-01-12] MEDS: INSULIN (NOVOLOG) ASPART 100 UNITS/ML 10ML VIAL SQ SCH ×3 (06:59→16:21)
[2023-01-12] MEDS: GABAPENTIN 400 MG CAPSULE PO SCH ×3 (07:00→21:17)
[2023-01-12] MEDS: INSULIN (LEVEMIR) 100 UNITS/ML UNITS SQ SCH ×2 (07:00→21:24)
[2023-01-12] MEDS: ENOXAPARIN NA (PORCINE) 80 MG/0.8 ML DISP.SYRIN SQ SCH ×2 (09:26→21:17)
[2023-01-12] MEDS: BUDESONIDE/FORMETEROL FUMARATE 80/4.5 mcg INHALER IH SCH ×2 (09:47→21:24)
[2023-01-12] MEDS ORDERED: CLOPIDOGREL BISULFATE 75 MG TABLET (FP) PO SCH (10:00)
[2023-01-12] MEDS ORDERED: DOXYCYCLINE INJECTION 100 MG in DEXTROSE 5%-WATER 100 ML IVPB SCH (10:00)
[2023-01-12 10:14] LABS: HEMATOCRIT 32.9 % (32.4-45.2); HEMOGLOBIN 10.2 GM/dL (10.7-15.3); MCH 27.8 pg (25.7-33.7); MCHC 30.9 g/dl (32.0-36.0); MEAN PLT VOLUME 7.5 fl (7.5-11.1); PLATELET COUNT 823 10^3/uL (134-434); RBC 3.65 M/mm3 (3.60-5.2); RDW 14.9 % (11.6-15.6); WHITE BLOOD COUNT 9.3 K/mm3 (4.0-10.0)
[2023-01-12 10:30] LABS: POTASSIUM 4.2 mmol/L (3.5-5.1)
[2023-01-12 10:34] LABS: CALCIUM 9.8 mg/dL (8.5-10.1)
[2023-01-12 10:35] LABS: BLOOD UREA NITROGEN 15.6 mg/dL (7-18)
[2023-01-12] MEDS ORDERED: LACTATED RINGERS SOLUTION 1,000 ML/1,000 ML INFUS.BAG IV ONE (10:36)
[2023-01-12] MEDS: CEFTRIAXONE 1 GM in DEXTROSE 5%-WATER - 50 ML IVPB SCH (10:49)
[2023-01-12] MEDS: oxyCODONE HCL 5 MG TABLET PO PRN (10:58)
[2023-01-12] MEDS: TIOTROPIUM BROMIDE 2.5 MCG (SPIRIVA) RESPIMAT INHALER IH SCH (11:00)
[2023-01-12] MEDS: LACTATED RINGERS SOLUTION 1,000 ML/1,000 ML INFUS.BAG IV SCH (14:28)
[2023-01-12] MEDS: ATORVASTATIN CA 80 MG TABLET (FP) PO SCH (21:17)
[2023-01-12] MEDS: MONTELUKAST NA 10 MG TABLET PO SCH (21:17)
[2023-01-13] MEDS: ACETAMINOPHEN 325 MG TABLET (FP) PO PRN ×2 (02:13→11:50)
[2023-01-13] MEDS: LACTATED RINGERS SOLUTION 1,000 ML/1,000 ML INFUS.BAG IV SCH ×2 (05:57→11:38)
[2023-01-13] MEDS: INSULIN (NOVOLOG) ASPART 100 UNITS/ML 10ML VIAL SQ SCH ×3 (06:01→16:29)
[2023-01-13] MEDS: INSULIN (LEVEMIR) 100 UNITS/ML UNITS SQ SCH (06:01)
[2023-01-13] MEDS: INSULIN SLIDING SCALE (NOVOLOG) 1 VIAL SQ SCH ×3 (06:01→16:28)
[2023-01-13] MEDS: GABAPENTIN 400 MG CAPSULE PO SCH ×3 (06:05→21:10)
[2023-01-13] MEDS: CEFTRIAXONE 1 GM in DEXTROSE 5%-WATER - 50 ML IVPB SCH (10:07)
[2023-01-13] MEDS: BUDESONIDE/FORMETEROL FUMARATE 80/4.5 mcg INHALER IH SCH ×2 (10:15→21:11)
[2023-01-13] MEDS: TIOTROPIUM BROMIDE 2.5 MCG (SPIRIVA) RESPIMAT INHALER IH SCH (10:15)
[2023-01-13 11:27] LABS: HEMATOCRIT 31.8 % (32.4-45.2); HEMOGLOBIN 10.4 GM/dL (10.7-15.3); MCH 29.4 pg (25.7-33.7); MCHC 32.6 g/dl (32.0-36.0); MEAN CELL VOLUME 90.1 fl (80-96); MEAN PLT VOLUME 7.6 fl (7.5-11.1); PLATELET COUNT 805 10^3/uL (134-434); RBC 3.53 M/mm3 (3.60-5.2); RDW 14.7 % (11.6-15.6); WHITE BLOOD COUNT 9.4 K/mm3 (4.0-10.0)
[2023-01-13 11:35] LABS: INR 1.27 (0.83-1.09); PROTHROMBIN TIME (PATIENT) 14.7 SEC (9.7-13.0)
[2023-01-13 11:53] LABS: POTASSIUM 4.2 mmol/L (3.5-5.1)
[2023-01-13 12:00] LABS: BLOOD UREA NITROGEN 7.9 mg/dL (7-18); CALCIUM 10.3 mg/dL (8.5-10.1)
[2023-01-13 12:01] LABS: CREATININE 0.7 mg/dL (0.55-1.3)
[2023-01-13] MEDS: oxyCODONE HCL 5 MG TABLET PO PRN (21:09)
[2023-01-13] MEDS: ATORVASTATIN CA 80 MG TABLET (FP) PO SCH (21:10)
[2023-01-13] MEDS: MONTELUKAST NA 10 MG TABLET PO SCH (21:10)
[2023-01-14] MEDS: INSULIN (LEVEMIR) 100 UNITS/ML UNITS SQ SCH ×3 (02:37→22:02)
[2023-01-14] MEDS: oxyCODONE HCL 5 MG TABLET PO PRN ×3 (04:10→18:02)
[2023-01-14] MEDS: GABAPENTIN 400 MG CAPSULE PO SCH ×3 (06:11→21:51)
[2023-01-14] MEDS: INSULIN SLIDING SCALE (NOVOLOG) 1 VIAL SQ SCH ×2 (06:14→16:35)
[2023-01-14] MEDS: INSULIN (NOVOLOG) ASPART 100 UNITS/ML 10ML VIAL SQ SCH ×2 (06:15→16:40)
[2023-01-14] MEDS: LACTATED RINGERS SOLUTION 1,000 ML/1,000 ML INFUS.BAG IV SCH ×2 (08:58→16:06)
[2023-01-14 09:55] LABS: INR 1.28 (0.83-1.09); PROTHROMBIN TIME (PATIENT) 14.8 SEC (9.7-13.0)
[2023-01-14 09:57] LABS: HEMATOCRIT 33.6 % (32.4-45.2); HEMOGLOBIN 11.4 GM/dL (10.7-15.3); MCH 29.8 pg (25.7-33.7); MCHC 33.9 g/dl (32.0-36.0); MEAN CELL VOLUME 87.7 fl (80-96); PLATELET COUNT 771 10^3/uL (134-434); RBC 3.83 M/mm3 (3.60-5.2); WHITE BLOOD COUNT 8.8 K/mm3 (4.0-10.0)
[2023-01-14] MEDS: CEFTRIAXONE 1 GM in DEXTROSE 5%-WATER - 50 ML IVPB SCH (10:02)
[2023-01-14] MEDS: TIOTROPIUM BROMIDE 2.5 MCG (SPIRIVA) RESPIMAT INHALER IH SCH (10:03)
[2023-01-14] MEDS: BUDESONIDE/FORMETEROL FUMARATE 80/4.5 mcg INHALER IH SCH ×2 (10:04→22:03)
[2023-01-14 10:49] LABS: POTASSIUM 4.1 mmol/L (3.5-5.1)
[2023-01-14 11:02] LABS: BLOOD UREA NITROGEN 5.9 mg/dL (7-18); CALCIUM 10.5 mg/dL (8.5-10.1)
[2023-01-14 11:05] LABS: CREATININE 0.7 mg/dL (0.55-1.3)
[2023-01-14] MEDS ORDERED: LIDOCAINE HCL 1%, 10 MG/ML (10ML VIAL) MDV ONE (11:40)
[2023-01-14] MEDS ORDERED: GENTAMICIN SO4 80 MG/2 ML VIAL ONE (11:40)
[2023-01-14] MEDS ORDERED: DEXAMETHASONE SOD PHOSPHATE 4 MG/1 ML VIAL ONE (11:41)
[2023-01-14] MEDS ORDERED: BACITRACIN ZINC 15 GM TUBE TOPICAL OINTMENT ONE (11:41)
[2023-01-14] MEDS ORDERED: BENZOIN/ALOE VERA/STORAX/TOLU 58 ML BOTTLE ONE (11:42)
[2023-01-14] MEDS ORDERED: BUPIVACAINE HCL/PF 0.5% (5MG/ML) 10 ML VIAL ONE (11:42)
[2023-01-14] MEDS ORDERED: MIDAZOLAM HCL 2 MG/2 ML SINGLE DOSE VIAL ONE (12:00)
[2023-01-14] MEDS ORDERED: THROMBIN (BOVINE) 5,000 UNIT VIAL TP ONE (12:28)
[2023-01-14] MEDS ORDERED: VANCOMYCIN 1,000 MG VIAL (RESTRICTED TO ID ONLY) ONE (12:53)
[2023-01-14] MEDS ORDERED: LIDOCAINE 1% P/F 10 MG/ML VIAL INF ONE (12:54)
[2023-01-14] MEDS ORDERED: BUPIVACAINE HCL/PF 0.5% (5MG/ML) 10 ML VIAL IJ ONE (12:55)
[2023-01-14] MEDS ORDERED: VANCOMYCIN 1,000 MG VIAL (RESTRICTED TO ID ONLY) IVPB ONE (12:58)
[2023-01-14] MEDS ORDERED: ACETAMINOPHEN 325 MG TABLET (FP) PO PRN ×2 (13:20→13:30)
[2023-01-14] MEDS ORDERED: SENNOSIDES 8.6MG TABLET (FP) PO PRN (13:30)
[2023-01-14] MEDS ORDERED: ALBUTEROL SO4 HFA INHALER IH PRN (13:30)
[2023-01-14] MEDS ORDERED: LACTATED RINGERS SOLUTION 1,000 ML IV SCH ×2 (13:30)
[2023-01-14 14:35] LABS: BASO % 1.2 % (0-2.0); EOS % 10.1 % (0-4.5); HEMATOCRIT 32.5 % (32.4-45.2); HEMOGLOBIN 10.7 GM/dL (10.7-15.3); LYMPH % 31.1 % (8-40); MCH 29.1 pg (25.7-33.7); MCHC 33.1 g/dl (32.0-36.0); MEAN CELL VOLUME 87.8 fl (80-96); MEAN PLT VOLUME 7.1 fl (7.5-11.1); MONO % 14.6 % (3.8-10.2); PLATELET COUNT 671 10^3/uL (134-434); RDW 14.8 % (11.6-15.6); WHITE BLOOD COUNT 9.1 K/mm3 (4.0-10.0)
[2023-01-14] MEDS ORDERED: SODIUM CHLORIDE 0.9% 500 ML INFUS.BAG IV ONE (19:12)
[2023-01-14] MEDS: ASPIRIN 81 MG CHEWABLE TABLETS PO SCH (21:05)
[2023-01-14] MEDS: ATORVASTATIN CA 80 MG TABLET (FP) PO SCH (21:49)
[2023-01-14] MEDS: MONTELUKAST NA 10 MG TABLET PO SCH (21:51)
[2023-01-14] MEDS ORDERED: HYDROmorphone HCl 2 MG/ML VIAL IVPB ONE (22:02)
[2023-01-15] MEDS: oxyCODONE HCL 5 MG TABLET PO PRN ×2 (01:14→08:45)
[2023-01-15] MEDS: ACETAMINOPHEN 325 MG TABLET (FP) PO PRN ×2 (05:09→13:22)
[2023-01-15] MEDS: GABAPENTIN 400 MG CAPSULE PO SCH ×3 (06:50→22:51)
[2023-01-15] MEDS: INSULIN (LEVEMIR) 100 UNITS/ML UNITS SQ SCH ×2 (08:39→22:55)
[2023-01-15] MEDS: INSULIN (NOVOLOG) ASPART 100 UNITS/ML 10ML VIAL SQ SCH ×3 (08:40→16:26)
[2023-01-15] MEDS: INSULIN SLIDING SCALE (NOVOLOG) 1 VIAL SQ SCH ×3 (08:41→16:27)
[2023-01-15] MEDS: CYCLOBENZAPRINE HCL 5 MG TABLET PO PRN (08:45)
[2023-01-15] MEDS: LACTATED RINGERS SOLUTION 1,000 ML/1,000 ML INFUS.BAG IV SCH ×2 (08:51→16:28)
[2023-01-15] MEDS ORDERED: HYDROmorphone HCl 2 MG/ML VIAL IVPUSH ONE (08:53)
[2023-01-15] MEDS ORDERED: CEFTRIAXONE 1 GM in DEXTROSE 5%-WATER - 50 ML IVPB SCH (10:00)
[2023-01-15] MEDS ORDERED: CLOPIDOGREL BISULFATE 75 MG TABLET (FP) PO SCH (10:00)
[2023-01-15 10:09] LABS: EOS % 7.2 % (0-4.5); HEMATOCRIT 31.1 % (32.4-45.2); HEMOGLOBIN 9.9 GM/dL (10.7-15.3); LYMPH % 29.9 % (8-40); MCH 28.4 pg (25.7-33.7); MCHC 31.8 g/dl (32.0-36.0); MEAN CELL VOLUME 89.2 fl (80-96); MEAN PLT VOLUME 7.3 fl (7.5-11.1); MONO % 14.9 % (3.8-10.2); PLATELET COUNT 658 10^3/uL (134-434); RBC 3.49 M/mm3 (3.60-5.2); RDW 14.4 % (11.6-15.6); WHITE BLOOD COUNT 11.1 K/mm3 (4.0-10.0)
[2023-01-15 10:28] LABS: POTASSIUM 4.1 mmol/L (3.5-5.1)
[2023-01-15 10:43] LABS: ALBUMIN 2.7 g/dl (3.4-5.0); BLOOD UREA NITROGEN 10.4 mg/dL (7-18); CALCIUM 9.5 mg/dL (8.5-10.1)
[2023-01-15 10:46] LABS: CREATININE 0.7 mg/dL (0.55-1.3)
[2023-01-15 10:48] LABS: BILIRUBIN,TOTAL 0.4 mg/dL (0.2-1)
[2023-01-15] MEDS: ASPIRIN 81 MG CHEWABLE TABLETS PO SCH (10:57)
[2023-01-15] MEDS: BUDESONIDE/FORMETEROL FUMARATE 80/4.5 mcg INHALER IH SCH ×2 (10:57→22:52)
[2023-01-15] MEDS: TIOTROPIUM BROMIDE 2.5 MCG (SPIRIVA) RESPIMAT INHALER IH SCH (10:58)
[2023-01-15] MEDS: DOCUSATE SODIUM 100 MG CAPSULE (FP) PO SCH ×2 (13:24→22:51)
[2023-01-15] MEDS ORDERED: HYDROmorphone HCL 2 MG TABLET PO PRN ×2 (14:00→16:10)
[2023-01-15] MEDS: HYDROmorphone HCL 2 MG TABLET PO PRN ×2 (16:21→22:50)
[2023-01-15] MEDS ORDERED: CYCLOBENZAPRINE HCL 5 MG TABLET PO ONE (18:39)
[2023-01-15] MEDS: APIXABAN 5 MG TABLET PO SCH (22:51)
[2023-01-15] MEDS: ATORVASTATIN CA 80 MG TABLET (FP) PO SCH (22:51)
[2023-01-15] MEDS: MONTELUKAST NA 10 MG TABLET PO SCH (22:51)
[2023-01-16] MEDS: LACTATED RINGERS SOLUTION 1,000 ML/1,000 ML INFUS.BAG IV SCH ×2 (04:43→17:22)
[2023-01-16] MEDS: DOCUSATE SODIUM 100 MG CAPSULE (FP) PO SCH ×3 (06:05→21:50)
[2023-01-16] MEDS: GABAPENTIN 400 MG CAPSULE PO SCH ×3 (06:05→21:50)
[2023-01-16] MEDS: HYDROmorphone HCL 2 MG TABLET PO PRN ×3 (06:05→20:03)
[2023-01-16] MEDS: INSULIN (LEVEMIR) 100 UNITS/ML UNITS SQ SCH ×2 (06:16→21:54)
[2023-01-16] MEDS: INSULIN SLIDING SCALE (NOVOLOG) 1 VIAL SQ SCH ×3 (06:16→17:08)
[2023-01-16] MEDS: INSULIN (NOVOLOG) ASPART 100 UNITS/ML 10ML VIAL SQ SCH ×3 (06:17→17:18)
[2023-01-16 09:41] LABS: BASO % 0.7 % (0-2.0); EOS % 7.2 % (0-4.5); HEMATOCRIT 30.8 % (32.4-45.2); HEMOGLOBIN 9.8 GM/dL (10.7-15.3); LYMPH % 29.3 % (8-40); MCH 28.4 pg (25.7-33.7); MCHC 31.9 g/dl (32.0-36.0); MEAN CELL VOLUME 89.1 fl (80-96); MEAN PLT VOLUME 7.6 fl (7.5-11.1); MONO % 14.8 % (3.8-10.2); PLATELET COUNT 593 10^3/uL (134-434); RBC 3.45 M/mm3 (3.60-5.2); RDW 14.7 % (11.6-15.6); WHITE BLOOD COUNT 12.2 K/mm3 (4.0-10.0)
[2023-01-16 10:02] LABS: ALBUMIN 2.6 g/dl (3.4-5.0); BLOOD UREA NITROGEN 7.3 mg/dL (7-18); CALCIUM 9.3 mg/dL (8.5-10.1)
[2023-01-16 10:05] LABS: CREATININE 0.6 mg/dL (0.55-1.3)
[2023-01-16 10:07] LABS: BILIRUBIN,TOTAL 0.5 mg/dL (0.2-1); TOT PROT 6.7 g/dl (6.4-8.2)
[2023-01-16] MEDS: TIOTROPIUM BROMIDE 2.5 MCG (SPIRIVA) RESPIMAT INHALER IH SCH (10:41)
[2023-01-16] MEDS: ASPIRIN 81 MG CHEWABLE TABLETS PO SCH (10:41)
[2023-01-16] MEDS: APIXABAN 5 MG TABLET PO SCH ×2 (10:41→21:50)
[2023-01-16] MEDS: BUDESONIDE/FORMETEROL FUMARATE 80/4.5 mcg INHALER IH SCH ×2 (10:41→21:51)
[2023-01-16] MEDS: ACETAMINOPHEN 325 MG TABLET (FP) PO PRN ×2 (12:40→17:17)
[2023-01-16] MEDS: ATORVASTATIN CA 80 MG TABLET (FP) PO SCH (21:50)
[2023-01-16] MEDS: MONTELUKAST NA 10 MG TABLET PO SCH (21:50)
[2023-01-17] MEDS: HYDROmorphone HCL 2 MG TABLET PO PRN ×4 (02:04→22:46)
[2023-01-17] MEDS: ACETAMINOPHEN 325 MG TABLET (FP) PO PRN (05:25)
[2023-01-17] MEDS: GABAPENTIN 400 MG CAPSULE PO SCH ×3 (05:25→22:46)
[2023-01-17] MEDS: DOCUSATE SODIUM 100 MG CAPSULE (FP) PO SCH ×3 (05:25→22:46)
[2023-01-17] MEDS: INSULIN (LEVEMIR) 100 UNITS/ML UNITS SQ SCH ×2 (06:31→22:51)
[2023-01-17] MEDS: INSULIN SLIDING SCALE (NOVOLOG) 1 VIAL SQ SCH ×3 (06:31→17:07)
[2023-01-17] MEDS: INSULIN (NOVOLOG) ASPART 100 UNITS/ML 10ML VIAL SQ SCH ×3 (06:31→17:06)
[2023-01-17 09:18] LABS: EOS % 9.8 % (0-4.5); HEMATOCRIT 30.3 % (32.4-45.2); HEMOGLOBIN 10.2 GM/dL (10.7-15.3); LYMPH % 32.4 % (8-40); MCHC 33.7 g/dl (32.0-36.0); MEAN CELL VOLUME 86.1 fl (80-96); MONO % 13.6 % (3.8-10.2); NEUT % 43.2 % (42.8-82.8); PLATELET COUNT 577 10^3/uL (134-434); RBC 3.52 M/mm3 (3.60-5.2); RDW 14.7 % (11.6-15.6); WHITE BLOOD COUNT 12.1 K/mm3 (4.0-10.0)
[2023-01-17] MEDS: CYCLOBENZAPRINE HCL 5 MG TABLET PO PRN ×2 (09:21→22:46)
[2023-01-17] MEDS: APIXABAN 5 MG TABLET PO SCH ×2 (09:26→22:46)
[2023-01-17] MEDS: ASPIRIN 81 MG CHEWABLE TABLETS PO SCH (09:26)
[2023-01-17] MEDS: BUDESONIDE/FORMETEROL FUMARATE 80/4.5 mcg INHALER IH SCH ×2 (09:27→22:51)
[2023-01-17] MEDS: TIOTROPIUM BROMIDE 2.5 MCG (SPIRIVA) RESPIMAT INHALER IH SCH (09:27)
[2023-01-17 09:52] LABS: CALCIUM 9.9 mg/dL (8.5-10.1)
[2023-01-17 09:55] LABS: BLOOD UREA NITROGEN 7.2 mg/dL (7-18); CREATININE 0.7 mg/dL (0.55-1.3)
[2023-01-17] MEDS: LACTATED RINGERS SOLUTION 1,000 ML/1,000 ML INFUS.BAG IV SCH ×2 (13:50→22:55)
[2023-01-17] MEDS: ATORVASTATIN CA 80 MG TABLET (FP) PO SCH (22:46)
[2023-01-17] MEDS: MONTELUKAST NA 10 MG TABLET PO SCH (22:46)
[2023-01-18] MEDS: DOCUSATE SODIUM 100 MG CAPSULE (FP) PO SCH ×4 (00:12→21:33)
[2023-01-18] MEDS: GABAPENTIN 400 MG CAPSULE PO SCH ×3 (06:11→21:33)
[2023-01-18] MEDS: INSULIN SLIDING SCALE (NOVOLOG) 1 VIAL SQ SCH ×3 (06:14→17:10)
[2023-01-18] MEDS: INSULIN (NOVOLOG) ASPART 100 UNITS/ML 10ML VIAL SQ SCH ×3 (06:14→17:10)
[2023-01-18] MEDS: INSULIN (LEVEMIR) 100 UNITS/ML UNITS SQ SCH ×2 (06:14→21:33)
[2023-01-18] MEDS: HYDROmorphone HCL 2 MG TABLET PO PRN ×3 (06:28→19:46)
[2023-01-18] MEDS: CYCLOBENZAPRINE HCL 5 MG TABLET PO PRN ×2 (10:39→22:00)
[2023-01-18] MEDS: ACETAMINOPHEN 325 MG TABLET (FP) PO PRN (10:40)
[2023-01-18] MEDS: BUDESONIDE/FORMETEROL FUMARATE 80/4.5 mcg INHALER IH SCH ×2 (10:44→21:35)
[2023-01-18] MEDS: TIOTROPIUM BROMIDE 2.5 MCG (SPIRIVA) RESPIMAT INHALER IH SCH (10:45)
[2023-01-18 12:15] LABS: INR 1.51 (0.83-1.09); PROTHROMBIN TIME (PATIENT) 17.4 SEC (9.7-13.0)
[2023-01-18] MEDS ORDERED: INSULIN (NOVOLOG) ASPART 100 UNITS/ML 10ML VIAL ONE (17:02)
[2023-01-18] MEDS: MONTELUKAST NA 10 MG TABLET PO SCH (21:33)
[2023-01-18] MEDS: ATORVASTATIN CA 80 MG TABLET (FP) PO SCH (21:33)
[2023-01-18 22:32] VITALS: RESP 18
[2023-01-19] MEDS: DOCUSATE SODIUM 100 MG CAPSULE (FP) PO SCH ×2 (06:21→14:37)
[2023-01-19] MEDS: INSULIN (NOVOLOG) ASPART 100 UNITS/ML 10ML VIAL SQ SCH ×3 (06:22→17:03)
[2023-01-19] MEDS: GABAPENTIN 400 MG CAPSULE PO SCH ×2 (06:22→14:39)
[2023-01-19] MEDS: HYDROmorphone HCL 2 MG TABLET PO PRN ×2 (06:38→14:37)
[2023-01-19] MEDS: INSULIN (LEVEMIR) 100 UNITS/ML UNITS SQ SCH (06:38)
[2023-01-19] MEDS: INSULIN SLIDING SCALE (NOVOLOG) 1 VIAL SQ SCH ×3 (07:28→17:03)
[2023-01-19] MEDS: LACTATED RINGERS SOLUTION 1,000 ML/1,000 ML INFUS.BAG IV SCH (07:40)
[2023-01-19 09:41] LABS: POTASSIUM 4.3 mmol/L (3.5-5.1)
[2023-01-19 09:44] LABS: BASO % 1.3 % (0-2.0); EOS % 12.6 % (0-4.5); HEMATOCRIT 31.5 % (32.4-45.2); HEMOGLOBIN 10.3 GM/dL (10.7-15.3); LYMPH % 33.4 % (8-40); MCH 28.6 pg (25.7-33.7); MCHC 32.5 g/dl (32.0-36.0); MEAN CELL VOLUME 88.1 fl (80-96); MEAN PLT VOLUME 7.7 fl (7.5-11.1); MONO % 12.1 % (3.8-10.2); NEUT % 40.6 % (42.8-82.8); PLATELET COUNT 591 10^3/uL (134-434); RBC 3.58 M/mm3 (3.60-5.2); RDW 14.6 % (11.6-15.6); WHITE BLOOD COUNT 10.5 K/mm3 (4.0-10.0)
[2023-01-19 09:50] LABS: CALCIUM 9.5 mg/dL (8.5-10.1)
[2023-01-19 09:51] LABS: ALBUMIN 2.7 g/dl (3.4-5.0); BLOOD UREA NITROGEN 8.7 mg/dL (7-18)
[2023-01-19 09:54] LABS: CREATININE 0.7 mg/dL (0.55-1.3)
[2023-01-19 09:56] LABS: BILIRUBIN,TOTAL 0.3 mg/dL (0.2-1); TOT PROT 7.1 g/dl (6.4-8.2)
[2023-01-19 10:09] VITALS: TEMP 97.6
[2023-01-19] MEDS: TIOTROPIUM BROMIDE 2.5 MCG (SPIRIVA) RESPIMAT INHALER IH SCH (11:24)
[2023-01-19] MEDS: BUDESONIDE/FORMETEROL FUMARATE 80/4.5 mcg INHALER IH SCH (11:24)
[2023-01-19] MEDS ORDERED: ACETAMINOPHEN 500 MG TABLET (FP) PO SCH (11:45)
[2023-01-19 16:49] VITALS: BP 117/65; PULSE 94
== END 2023-01-19 18:05 | DRG 240 ==
LOC: JER 12:53 → JERBED 16:14 → J6S 18:42
PROVIDERS: ADMIT Internal Medicine; ATTEND Internal Medicine
PROC: 0Y6N0Z9 Detachment at Left Foot, Partial 1st Ray, Open Approach (ICD-10-PCS; 2023-01-14)
PROC: 3E0V329 Introduction of Other Anti-infective into Bones, Percutaneous Approach (ICD-10-PCS; 2023-01-14)
PROC: 0Y6N0Z4 Detachment at Left Foot, Complete 1st Ray, Open Approach (ICD-10-PCS; principal; 2023-01-14 12:00)
DX: E11.52 Type 2 diabetes mellitus with diabetic peripheral angiopathy with gangrene (principal); I96 Gangrene, not elsewhere classified; N17.9 Acute kidney failure, unspecified; J45.909 Unspecified asthma, uncomplicated; J44.9 Chronic obstructive pulmonary disease, unspecified; I73.9 Peripheral vascular disease, unspecified; E78.5 Hyperlipidemia, unspecified; E11.22 Type 2 diabetes mellitus with diabetic chronic kidney disease; E11.00 Type 2 diabetes mellitus with hyperosmolarity without nonketotic hyperglycemic-hyperosmolar coma (NKHHC); E11.40 Type 2 diabetes mellitus with diabetic neuropathy, unspecified; I12.9 Hypertensive chronic kidney disease with stage 1 through stage 4 chronic kidney disease, or unspecified chronic kidney disease; N18.9 Chronic kidney disease, unspecified
CPT/HCPCS: 36415; 71045-TC-FY; 73630-TC-RT-FY; 80048; 80053; 82962; 85025; 85027; 85610; 85730; 86850; 86900; 86901; 87040; 87070; 87077; 87205; 88305-TC; 88311-TC; 93005; 93010; 94760; 97116-GP; 97162-GP; 99285-25; C1713; G0463-25

== ENCOUNTER 2024-12-28 08:42 | Inpatient (IN) | payer OTHER ==
[2024-12-28 09:47] LABS: MCHC 32.1 g/dl (32.2-35.5); MEAN CELL VOLUME 88.0 fl (79.4-94.8); MEAN PLT VOLUME 9.4 fl (9.4-12.3); RDW 16.0 % (12.4-16.4)
[2024-12-28 09:55] LABS: INR 1.07 (0.83-1.09); PROTHROMBIN TIME (PATIENT) 11.7 SEC (9.7-13.0)
[2024-12-28 09:58] LABS: ACTIVATED PTT 34.5 SECONDS (25.2-36.5)
[2024-12-28 11:40] LABS: CO2 26.0 mmol/L (21-32); GLUCOSE,RANDOM 104.0 mg/dL (74-106)
[2024-12-28 11:43] LABS: CREATININE 0.7 mg/dL (0.55-1.3); SGOT/AST 27.0 U/L (15-37); SGPT/ALT 34.0 U/L (13-61)
[2024-12-28 11:45] LABS: TOT PROT 7.2 g/dl (6.4-8.2)
[2024-12-28 11:46] LABS: ALK PHOS 103.0 U/L (45-117)
[2024-12-28 13:43] LABS: HIV INTERPRETATION NEGATIVE (NEGATIVE)
[2024-12-28 13:44] LABS: HCV DIAGNOSTIC IN-HOUSE W/RFLX NON-REACTIVE (NONREACTIVE)
[2024-12-28 13:59] VITALS: RESP 18
[2024-12-28] MEDS ORDERED: [UNRECOGNIZED DRUG - OTHER] IH PRN (15:50)
[2024-12-28] MEDS ORDERED: SALMETEROL IH PRN (15:50)
[2024-12-28] MEDS ORDERED: FLUTICASONE PROPION IH PRN (15:50)
[2024-12-28] MEDS ORDERED: ALBUTEROL SO4 HFA INHALER IH PRN (15:50)
[2024-12-28 19:48] VITALS: BMI 30.7
[2024-12-28] MEDS ORDERED: APIXABAN 5 MG TABLET PO SCH (22:00)
[2024-12-28] MEDS: GABAPENTIN 400 MG CAPSULE PO SCH (22:37)
[2024-12-28] MEDS: ENOXAPARIN NA (PORCINE) 80 MG/0.8 ML DISP.SYRIN SQ SCH (22:38)
[2024-12-28] MEDS: ATORVASTATIN CA 80 MG TABLET (FP) PO SCH (22:38)
[2024-12-28] MEDS: MONTELUKAST NA 10 MG TABLET PO SCH (22:38)
[2024-12-29] MEDS: SODIUM CHLORIDE 500 ML IV STA (08:30)
[2024-12-29 08:59] LABS: MCHC 31.7 g/dl (32.2-35.5); MEAN CELL VOLUME 87.6 fl (79.4-94.8); MEAN PLT VOLUME 9.7 fl (9.4-12.3); RDW 16.0 % (12.4-16.4)
[2024-12-29] MEDS: GABAPENTIN 300 MG CAPSULE PO SCH (09:28)
[2024-12-29 09:44] LABS: CO2 24.0 mmol/L (21-32); GLUCOSE,RANDOM 107.0 mg/dL (74-106)
[2024-12-29 09:47] LABS: CREATININE 0.7 mg/dL (0.55-1.3); SGOT/AST 19.0 U/L (15-37); SGPT/ALT 29.0 U/L (13-61)
[2024-12-29 09:49] LABS: TOT PROT 6.8 g/dl (6.4-8.2)
[2024-12-29 09:50] LABS: ALK PHOS 105.0 U/L (45-117)
[2024-12-29] MEDS ORDERED: HYDROCHLOROTHIAZIDE 12.5 MG CAPSULE (FP) PO SCH (10:00)
[2024-12-29] MEDS ORDERED: LISINOPRIL 20 MG TABLET PO SCH (10:00)
[2024-12-29] MEDS: MAGNESIUM 2GM/50ML STERILE WATER IVPB IVPB ONE (11:07)
[2024-12-30 10:21] VITALS: BP 114/57; PULSE 78; TEMP 97.9
[2024-12-30] MEDS: APIXABAN 5 MG TABLET PO ONE (12:47)
== END 2024-12-30 14:19 | disposition home or self-care (01) | DRG 300 ==
LOC: JER 08:42 → JERBED 12:58 → J5S 17:39
PROVIDERS: ADMIT Internal Medicine; ATTEND Internal Medicine
DX: E11.51 Type 2 diabetes mellitus with diabetic peripheral angiopathy without gangrene (principal); I70.92 Chronic total occlusion of artery of the extremities; I10 Essential (primary) hypertension; E78.5 Hyperlipidemia, unspecified; E11.40 Type 2 diabetes mellitus with diabetic neuropathy, unspecified; I48.0 Paroxysmal atrial fibrillation; E83.42 Hypomagnesemia
CPT/HCPCS: 36415; 75635-TC; 80053; 82962; 83735; 85027; 85610; 85730; 86803; 86850; 86900; 86901; 87389; 93005; 93010; 93306-TC; 99285-25; Q9967

== ENCOUNTER 2025-01-01 09:46 | Inpatient (IN) | payer OTHER ==
[2025-01-01] MEDS ORDERED: ALBUTEROL SO4 0.083% IH SOL 2.5 MG/3 ML VIAL.NEB. NEB ONE (10:51)
[2025-01-01] MEDS: ALBUTEROL SO4 0.083% IH SOL 2.5 MG/3 ML VIAL.NEB. NEB ONE (10:58)
[2025-01-01 12:04] LABS: ABSOLUTE IMMATURE GRANULOCYTES 0.02 x10^3/uL (0.0-0.031); BASOPHILS # 0.09 x10^3/uL (0.01-0.08); EOSINOPHIL % 8.0 % (0.7-5.8); EOSINOPHILS # 0.64 x10^3/uL (0.04-0.36); MCHC 31.9 g/dl (32.2-35.5); MEAN CELL VOLUME 88.0 fl (79.4-94.8); MEAN PLT VOLUME 9.5 fl (9.4-12.3); MONOCYTE # 1.03 x10^3/uL (0.24-0.86); MONOCYTE % 12.8 % (4.7-12.5); RDW 15.8 % (12.4-16.4)
[2025-01-01 12:16] LABS: INR 1.14 (0.83-1.09); PROTHROMBIN TIME (PATIENT) 12.4 SEC (9.7-13.0)
[2025-01-01 12:19] LABS: ACTIVATED PTT 34.2 SECONDS (25.2-36.5)
[2025-01-01 12:34] LABS: CO2 27.0 mmol/L (21-32); GLUCOSE,RANDOM 92.0 mg/dL (74-106)
[2025-01-01 12:37] LABS: CREATININE 0.8 mg/dL (0.55-1.3); SGOT/AST 21.0 U/L (15-37); SGPT/ALT 25.0 U/L (13-61)
[2025-01-01 12:39] LABS: TOT PROT 6.9 g/dl (6.4-8.2)
[2025-01-01 12:40] LABS: ALK PHOS 98.0 U/L (45-117)
[2025-01-01] MEDS ORDERED: ACETAMINOPHEN 325 MG TABLET (FP) PO PRN (13:34)
[2025-01-01 13:47] LABS: HIV INTERPRETATION NEGATIVE (NEGATIVE)
[2025-01-01 13:49] LABS: HCV DIAGNOSTIC IN-HOUSE W/RFLX NON-REACTIVE (NONREACTIVE)
[2025-01-01] MEDS ORDERED: ALBUTEROL SO4 2.5/IPRATROPIUM 0.5 INH SOL 3 ML VIAL.NEB. NEB PRN (14:13)
[2025-01-01] MEDS: INSULIN ASPART SLIDING SCALE (NOVOLOG) 1 VIAL SQ SCH (17:43)
[2025-01-01 18:25] VITALS: BMI 31.6
[2025-01-01] MEDS: ATORVASTATIN CA 80 MG TABLET (FP) PO SCH (21:18)
[2025-01-01] MEDS: MONTELUKAST NA 10 MG TABLET PO SCH (21:18)
[2025-01-01] MEDS: GABAPENTIN 300 MG CAPSULE PO ONE (22:34)
[2025-01-02 08:51] LABS: MCHC 31.7 g/dl (32.2-35.5); MEAN CELL VOLUME 88.9 fl (79.4-94.8); MEAN PLT VOLUME 9.6 fl (9.4-12.3); RDW 15.9 % (12.4-16.4)
[2025-01-02 09:41] LABS: CO2 28.0 mmol/L (21-32)
[2025-01-02 09:43] LABS: CREATININE 0.7 mg/dL (0.55-1.3); SGOT/AST 20.0 U/L (15-37); SGPT/ALT 23.0 U/L (13-61)
[2025-01-02 09:44] LABS: GLUCOSE,RANDOM 87.0 mg/dL (74-106); TOT PROT 6.6 g/dl (6.4-8.2)
[2025-01-02 09:46] LABS: ALK PHOS 94.0 U/L (45-117)
[2025-01-02] MEDS: GABAPENTIN 100 MG CAPSULE PO SCH (12:54)
[2025-01-02] MEDS: ALBUTEROL SO4 2.5/IPRATROPIUM 0.5 INH SOL 3 ML VIAL.NEB. NEB ONE (17:05)
[2025-01-03 09:59] LABS: INR 1.06 (0.83-1.09); PROTHROMBIN TIME (PATIENT) 11.5 SEC (9.7-13.0)
[2025-01-03] MEDS: LACTATED RINGERS SOLUTION 1,000 ML/1,000 ML INFUS.BAG IV SCH ×2 (18:00→21:16)
[2025-01-03] MEDS ORDERED: HEPARIN NA (PORCINE) 5,000 UNITS/ML 1ML VIAL ONE (19:10)
[2025-01-03] MEDS ORDERED: LIDOCAINE HCL 1%, 10 MG/ML (20ML VIAL) ONE (19:10)
[2025-01-03] MEDS ORDERED: PROPOFOL 60 ML ONE (19:13)
[2025-01-03] MEDS ORDERED: LIDOCAINE HCL/PF 2% SDV 5ML VIAL ONE (19:13)
[2025-01-03] MEDS ORDERED: MIDAZOLAM HCL 2 MG/2 ML SINGLE DOSE VIAL ONE (19:14)
[2025-01-03] MEDS ORDERED: ONDANSETRON 4 MG/2 ML VIAL IVPUSH PRN ×2 (19:37→21:06)
[2025-01-03] MEDS ORDERED: PROMETHAZINE HCL 25 MG/1 ML VIAL IVPB PRN ×2 (19:37→21:06)
[2025-01-03] MEDS ORDERED: ACETAMINOPHEN 1000 MG/100 ML BAG IVPB ONE (19:38)
[2025-01-03] MEDS: LIDOCAINE HCL 1%, 10 MG/ML (50 mL VIAL) INF ONE ×2 (19:42)
[2025-01-03] MEDS ORDERED: LACTATED RINGERS SOLUTION 1,000 ML IV SCH ×2 (19:45→21:06)
[2025-01-03] MEDS ORDERED: PROPOFOL 20 ML ONE (20:33)
[2025-01-03] MEDS ORDERED: ALBUTEROL SO4 2.5/IPRATROPIUM 0.5 INH SOL 3 ML VIAL.NEB. NEB PRN (21:06)
[2025-01-03] MEDS: ACETAMINOPHEN 1000 MG/100 ML BAG IVPB ONE (21:17)
[2025-01-03] MEDS: CLOPIDOGREL BISULFATE 75 MG TABLET (FP) PO SCH (21:18)
[2025-01-03] MEDS: APIXABAN 5 MG TABLET PO SCH (21:22)
[2025-01-03] MEDS: GABAPENTIN 100 MG CAPSULE PO SCH (22:37)
[2025-01-03] MEDS: ATORVASTATIN CA 80 MG TABLET (FP) PO SCH (22:37)
[2025-01-03] MEDS: MONTELUKAST NA 10 MG TABLET PO SCH (22:38)
[2025-01-03] MEDS: ACETAMINOPHEN 325 MG TABLET (FP) PO PRN (23:20)
[2025-01-04 01:40] VITALS: RESP 18
[2025-01-04] MEDS: INSULIN ASPART SLIDING SCALE (NOVOLOG) 1 VIAL SQ SCH (06:32)
[2025-01-04 07:03] VITALS: PULSE 98
[2025-01-04 09:23] LABS: ABSOLUTE IMMATURE GRANULOCYTES 0.01 x10^3/uL (0.0-0.031); BASOPHILS # 0.04 x10^3/uL (0.01-0.08); EOSINOPHIL % 5.9 % (0.7-5.8); EOSINOPHILS # 0.53 x10^3/uL (0.04-0.36); MCHC 31.3 g/dl (32.2-35.5); MEAN CELL VOLUME 89.0 fl (79.4-94.8); MEAN PLT VOLUME 9.7 fl (9.4-12.3); MONOCYTE # 0.64 x10^3/uL (0.24-0.86); MONOCYTE % 7.2 % (4.7-12.5); RDW 15.7 % (12.4-16.4)
[2025-01-04 10:06] LABS: TOT PROT 7.0 g/dl (6.4-8.2)
[2025-01-04 10:07] LABS: ALK PHOS 93.0 U/L (45-117)
[2025-01-04 10:08] LABS: GLUCOSE,RANDOM 96.0 mg/dL (74-106)
[2025-01-04 10:10] LABS: SGPT/ALT 22.0 U/L (13-61)
[2025-01-04 10:11] LABS: CREATININE 0.7 mg/dL (0.55-1.3)
[2025-01-04 10:12] LABS: SGOT/AST 20.0 U/L (15-37)
[2025-01-04 10:13] LABS: CO2 24.0 mmol/L (21-32)
[2025-01-04 11:14] VITALS: BP 117/70; TEMP 97.6
== END 2025-01-04 11:10 | disposition home or self-care (01) | DRG 271 ==
LOC: JER 09:46 → JERBED 14:50 → J8W 16:14
PROVIDERS: ADMIT Internal Medicine; ATTEND Nurse Practitioner Family
PROC: 047M3D1 Dilation of Right Popliteal Artery with Intraluminal Device, using Drug-Coated Balloon, Percutaneous Approach (ICD-10-PCS; 2025-01-03)
PROC: 047P3Z1 Dilation of Right Anterior Tibial Artery using Drug-Coated Balloon, Percutaneous Approach (ICD-10-PCS; 2025-01-03)
PROC: 047K3Z1 Dilation of Right Femoral Artery using Drug-Coated Balloon, Percutaneous Approach (ICD-10-PCS; 2025-01-03)
PROC: B40FYZZ Plain Radiography of Right Lower Extremity Arteries using Other Contrast (ICD-10-PCS; 2025-01-03)
PROC: 04CK3ZZ Extirpation of Matter from Right Femoral Artery, Percutaneous Approach (ICD-10-PCS; principal; 2025-01-03 18:00)
DX: E11.51 Type 2 diabetes mellitus with diabetic peripheral angiopathy without gangrene (principal); T82.856A Stenosis of peripheral vascular stent, initial encounter; I10 Essential (primary) hypertension; E78.5 Hyperlipidemia, unspecified; I48.91 Unspecified atrial fibrillation; E11.40 Type 2 diabetes mellitus with diabetic neuropathy, unspecified; J45.909 Unspecified asthma, uncomplicated; Y83.8 Other surgical procedures as the cause of abnormal reaction of the patient, or of later complication, without mention of misadventure at the time of the procedure
CPT/HCPCS: 36415; 71045-TC-FY; 76000-TC-FY; 80053; 82962; 83036; 83735; 84100; 85025; 85027; 85610; 85730; 86803; 86850; 86900; 86901; 87389; 87637-QW; 93005; 93010; 94640; 94760; 99285-25; C1760